=== PATIENT | male | born 1955 | race Caucasian/White ===

== ENCOUNTER 2021-04-30 14:25 | Inpatient (IN) | payer BC, MEDICARE ==
[~2021-04-30] VITALS: Ht 198.1 cm; Wt 103.0 kg
[2021-04-30] MEDS ORDERED: CEFTRIAXONE 1 GM VIAL IM ONE (15:00)
[2021-04-30 15:20] LABS: BASOPHILS # (AUTO) 0.1 (0.0-0.1); BASOPHILS % 0.3 % (0.0-1.0); EOSINOPHILS # (AUTO) 0.1 (0.0-0.4); HEMATOCRIT 35.9 % (38.2-49.6); HEMOGLOBIN 11.2 g/dL (14.0-18.0); LYMPHOCYTES # (AUTO) 1.1 (1.0-3.2); LYMPHOCYTES % 7.8 % (18.0-39.1); MEAN CORPUSCULAR HEMOGLOBIN 27.5 pg (28-32); MEAN CORPUSCULAR HGB CONC 31.2 g/dL (31-35); MONOCYTES # (AUTO) 1.7 (0.2-0.8); MONOCYTES % 12.2 % (4.4-11.3); NEUTROPHILS # (AUTO) 11.2 (2.1-6.9); NEUTROPHILS % 78.3 % (38.7-80.0); PLATELET COUNT 451 x10e3/uL (140-360); RED BLOOD COUNT 4.08 x10e6/uL (4.3-5.7); RED CELL DISTRIBUTION WIDTH 15.6 % (11.7-14.4)
[2021-04-30 15:40] LABS: ALBUMIN 2.6 g/dL (3.5-5.0); ALBUMIN/GLOBULIN RATIO 0.5 (0.8-2.0); ANION GAP 14.1 mmol/L (8-16); CALCIUM 9.3 mg/dL (8.4-10.2); CREATININE, SERUM 0.85 mg/dL (0.72-1.25); POTASSIUM 4.1 mmol/L (3.5-5.1)
[2021-04-30] MEDS ORDERED: ONDANSETRON HCL INJ 2MG/ML 2ML 2 MG/ML VIAL IV PRN (16:45)
[2021-04-30] MEDS ORDERED: ASPIRIN 81 MG CHEW TAB PO ONE (16:45)
[2021-04-30] MEDS ORDERED: SODIUM CHLORIDE 0.9% 50ML 50 ML ONE (18:19)
[2021-04-30] MEDS ORDERED: IOPAMIDOL 370 MG/ML 200 ML INFUS..BTL INJ ONE (18:19)
[2021-04-30 20:00] VITALS: BP 125/91
[2021-04-30 21:00] VITALS: BP 125/91
[2021-04-30 21:02] VITALS: BP 142/85
[2021-04-30] MEDS ORDERED: CETIRIZINE HCL10 MG PO (21:32)
[2021-04-30] MEDS ORDERED: SYMBICORT 16010.2 GM INH (21:32)
[2021-04-30] MEDS ORDERED: ESIDRIX25 MG PO (21:32)
[2021-04-30] MEDS ORDERED: PAXIL10 MG PO (21:32)
[2021-04-30] MEDS ORDERED: VITAMIN C1000 MG PO (21:32)
[2021-04-30] MEDS ORDERED: PREGABALIN75 MG PO (21:32)
[2021-04-30] MEDS ORDERED: RAMIPRIL5 MG PO (21:32)
[2021-04-30] MEDS ORDERED: PEPCID20 MG PO (21:32)
[2021-04-30] MEDS ORDERED: DEXTROAMP-AMPHE30 M1 PO (21:32)
[2021-04-30] MEDS ORDERED: VITAMIN B-121000 MC1 PO (21:32)
[2021-04-30] MEDS ORDERED: BUPROPION HCL100 MG PO (21:32)
[2021-04-30] MEDS ORDERED: LEVOTHYROXINE175 MCG PO (21:32)
[2021-04-30] MEDS ORDERED: ULTRAM 50MG50 MG PO (21:32)
[2021-04-30] MEDS ORDERED: ALEVE220 M1 PO (21:32)
[2021-04-30] MEDS ORDERED: VITAMIN D3-ALO1 EACH PO (21:38)
[2021-04-30] MEDS: TRAMADOL HCL 50 MG TAB PO SCH (22:30)
[2021-05-01] VITALS (8 sets, daily range): BP systolic 92–150; BP diastolic 64–89
[2021-05-01] MEDS: LEVOTHYROXINE SODIUM 100 MCG TAB PO SCH (06:17)
[2021-05-01] MEDS: LEVOTHYROXINE SODIUM 75 MCG TAB PO SCH (06:17)
[2021-05-01 06:20] LABS: BASOPHILS # (AUTO) 0.1 (0.0-0.1); BASOPHILS % 0.4 % (0.0-1.0); EOSINOPHILS # (AUTO) 0.2 (0.0-0.4); EOSINOPHILS % 1.4 % (0.0-6.0); HEMATOCRIT 37.7 % (38.2-49.6); HEMOGLOBIN 11.9 g/dL (14.0-18.0); LYMPHOCYTES # (AUTO) 1.6 (1.0-3.2); LYMPHOCYTES % 11.2 % (18.0-39.1); MEAN CORPUSCULAR HEMOGLOBIN 27.2 pg (28-32); MEAN CORPUSCULAR HGB CONC 31.6 g/dL (31-35); MEAN CORPUSCULAR VOLUME 86.3 fL (81-99); MONOCYTES # (AUTO) 1.7 (0.2-0.8); MONOCYTES % 12.4 % (4.4-11.3); NEUTROPHILS # (AUTO) 10.4 (2.1-6.9); PLATELET COUNT 480 x10e3/uL (140-360); RED BLOOD COUNT 4.37 x10e6/uL (4.3-5.7); RED CELL DISTRIBUTION WIDTH 15.6 % (11.7-14.4)
[2021-05-01 06:46] LABS: ANION GAP 15.4 mmol/L (8-16); CALCIUM 9.8 mg/dL (8.4-10.2); CREATININE, SERUM 0.88 mg/dL (0.72-1.25); POTASSIUM 4.4 mmol/L (3.5-5.1)
[2021-05-01] MEDS: TRAMADOL HCL 50 MG TAB PO SCH ×2 (09:00→17:00)
[2021-05-01 10:49] LABS: INR 1.16; PROTHROMBIN TIME 15.8 seconds (11.9-14.5)
[2021-05-01 11:08] LABS: CREATINE KINASE MB 4.1 ng/mL (0-5.0)
[2021-05-01 12:50] LABS: THYROID STIMULATING HORMONE 5.601 uIU/mL (0.350-4.940)
[2021-05-01] MEDS: ALBUTEROL SULF 0.083% NEB SOLN 3 ML NEB NEB SCH ×2 (15:00→19:30)
[2021-05-01] MEDS: IRON SUCROSE 100 MG in SODIUM CHLORIDE 0.9% 100 ML 100 ML IV SCH (16:30)
[2021-05-01] MEDS: PIPERACILLIN/TAZOBACTAM 3.375 GM in SODIUM CHLORIDE 0.9% 50ML 50 ML IV SCH (18:20)
[2021-05-01] MEDS ORDERED: SODIUM CHLORIDE 0.9% 250ML 250 ML ONE (18:24)
[2021-05-01] MEDS: KETOROLAC TROMETHAMINE 30 MG/ML VIAL IV PRN (18:25)
[2021-05-01 19:33] LABS: CREATINE KINASE MB 4.1 ng/mL (0-5.0)
[2021-05-02] VITALS (7 sets, daily range): BP systolic 105–146; BP diastolic 73–98
[2021-05-02] MEDS: PIPERACILLIN/TAZOBACTAM 3.375 GM in SODIUM CHLORIDE 0.9% 50ML 50 ML IV SCH ×5 (00:45→23:32)
[2021-05-02] MEDS: KETOROLAC TROMETHAMINE 30 MG/ML VIAL IV PRN (02:15)
[2021-05-02 05:30] LABS: BASOPHILS # (AUTO) 0.1 (0.0-0.1); BASOPHILS % 0.6 % (0.0-1.0); EOSINOPHILS # (AUTO) 0.6 (0.0-0.4); EOSINOPHILS % 5.2 % (0.0-6.0); HEMATOCRIT 31.3 % (38.2-49.6); HEMOGLOBIN 9.7 g/dL (14.0-18.0); LYMPHOCYTES # (AUTO) 1.5 (1.0-3.2); MEAN CORPUSCULAR HEMOGLOBIN 27.1 pg (28-32); MEAN CORPUSCULAR VOLUME 87.4 fL (81-99); MONOCYTES # (AUTO) 1.3 (0.2-0.8); MONOCYTES % 11.5 % (4.4-11.3); NEUTROPHILS # (AUTO) 7.7 (2.1-6.9); NEUTROPHILS % 69.1 % (38.7-80.0); PLATELET COUNT 446 x10e3/uL (140-360); RED BLOOD COUNT 3.58 x10e6/uL (4.3-5.7); RED CELL DISTRIBUTION WIDTH 15.4 % (11.7-14.4)
[2021-05-02 05:55] LABS: ANION GAP 11.9 mmol/L (8-16); CALCIUM 8.6 mg/dL (8.4-10.2); CREATININE, SERUM 0.93 mg/dL (0.72-1.25); POTASSIUM 3.9 mmol/L (3.5-5.1)
[2021-05-02] MEDS: LEVOTHYROXINE SODIUM 100 MCG TAB PO SCH (06:51)
[2021-05-02] MEDS: LEVOTHYROXINE SODIUM 75 MCG TAB PO SCH (06:51)
[2021-05-02] MEDS: ALBUTEROL SULF 0.083% NEB SOLN 3 ML NEB NEB SCH ×3 (07:16→23:20)
[2021-05-02] MEDS: TRAMADOL HCL 50 MG TAB PO SCH ×3 (09:29→22:36)
[2021-05-02] MEDS ORDERED: MIDAZOLAM HCL 2 MG/2 ML VIAL ONE (12:19)
[2021-05-02] MEDS ORDERED: EPHEDRINE SULFATE INJ 50 MG/ML VIAL ONE (12:50)
[2021-05-02] MEDS ORDERED: PROPOFOL IV EMULSION 10 MG/ML 20 ML VIAL ONE (12:50)
[2021-05-02] MEDS ORDERED: DEXAMETHASONE SOD PHOS INJ 4 MG/ML SDV ONE (12:50)
[2021-05-02] MEDS ORDERED: ONDANSETRON HCL INJ 2MG/ML 2ML 2 MG/ML VIAL ONE (12:50)
[2021-05-02] MEDS ORDERED: SEVOFLURANE INHAL SOLN 250 ML PEN BTL ONE (12:50)
[2021-05-02] MEDS ORDERED: POVIDONE IODINE 0.05% 0.05 % ML PO ONE (12:50)
[2021-05-02] MEDS ORDERED: PHENYLEPHRINE HCL 1% 10 MG/ML VIAL ONE (12:50)
[2021-05-02] MEDS ORDERED: LIDOCAINE HCL 2% LOCAL INJ 5 ML SDV VIAL INJ ONE (12:50)
[2021-05-02] MEDS ORDERED: LIDOCAINE HCL 2% JELLY 5 ML TUBE ONE (13:38)
[2021-05-02] MEDS ORDERED: LIDOCAINE HCL 4% 50 ML BTL ONE (13:38)
[2021-05-02] MEDS ORDERED: EPINEPHRINE HCL 1:1000 1ML 1 MG/ML AMP ONE (13:38)
[2021-05-02] MEDS ORDERED: ALBUTEROL SULF 0.083% NEB SOLN 3 ML NEB ONE (14:54)
[2021-05-02] MEDS: IRON SUCROSE 100 MG in SODIUM CHLORIDE 0.9% 100 ML 100 ML IV SCH (16:00)
[2021-05-02 17:44] LABS: GLUCOSE,BODY FLUID < 5 mg/dL
[2021-05-02 21:12] LABS: BODY FLUID APPEARANCE TURBID; BODY FLUID COLOR COLORLESS
[2021-05-02 21:13] LABS: RBC,BODY FLUID < 2000 cells/uL; WBC,BODY FLUID 315 cells/uL
[2021-05-02 21:31] LABS: LYMPHOCYTES,BODY FLUID 36 %; MONO/MACROPHG,BODY FLUID 16 %; NEUTROPHILS,BODY FLUID 18 %; OTHER CELLS,BODY FLUID 30 %
[2021-05-03] VITALS (7 sets, daily range): BP systolic 108–177; BP diastolic 74–110
[2021-05-03] MEDS: PIPERACILLIN/TAZOBACTAM 3.375 GM in SODIUM CHLORIDE 0.9% 50ML 50 ML IV SCH ×4 (05:45→23:58)
[2021-05-03] MEDS: LEVOTHYROXINE SODIUM 100 MCG TAB PO SCH (05:45)
[2021-05-03] MEDS: LEVOTHYROXINE SODIUM 75 MCG TAB PO SCH (05:46)
[2021-05-03] MEDS: ALBUTEROL SULF 0.083% NEB SOLN 3 ML NEB NEB SCH ×2 (06:30→14:25)
[2021-05-03] MEDS: TRAMADOL HCL 50 MG TAB PO SCH ×2 (09:00→21:00)
[2021-05-03] MEDS: IRON SUCROSE 100 MG in SODIUM CHLORIDE 0.9% 100 ML 100 ML IV SCH (15:07)
[2021-05-04] VITALS (8 sets, daily range): BP systolic 127–165; BP diastolic 85–96
[2021-05-04] MEDS: PIPERACILLIN/TAZOBACTAM 3.375 GM in SODIUM CHLORIDE 0.9% 50ML 50 ML IV SCH ×3 (05:44→17:37)
[2021-05-04] MEDS: LEVOTHYROXINE SODIUM 75 MCG TAB PO SCH (05:45)
[2021-05-04] MEDS: LEVOTHYROXINE SODIUM 100 MCG TAB PO SCH (05:45)
[2021-05-04] MEDS: ALBUTEROL SULF 0.083% NEB SOLN 3 ML NEB NEB SCH ×2 (06:45→19:16)
[2021-05-04] MEDS: TRAMADOL HCL 50 MG TAB PO SCH ×2 (12:55→21:08)
[2021-05-05] VITALS (8 sets, daily range): BP systolic 96–125; BP diastolic 73–87
[2021-05-05] MEDS: PIPERACILLIN/TAZOBACTAM 3.375 GM in SODIUM CHLORIDE 0.9% 50ML 50 ML IV SCH ×2 (00:30→06:11)
[2021-05-05] MEDS: LEVOTHYROXINE SODIUM 75 MCG TAB PO SCH (06:12)
[2021-05-05] MEDS: LEVOTHYROXINE SODIUM 100 MCG TAB PO SCH (06:12)
[2021-05-05] MEDS: ALBUTEROL SULF 0.083% NEB SOLN 3 ML NEB NEB SCH ×3 (06:54→18:40)
[2021-05-05 07:09] LABS: BASOPHILS # (AUTO) 0.1 (0.0-0.1); BASOPHILS % 0.6 % (0.0-1.0); EOSINOPHILS # (AUTO) 0.3 (0.0-0.4); EOSINOPHILS % 3.1 % (0.0-6.0); HEMOGLOBIN 11.1 g/dL (14.0-18.0); LYMPHOCYTES # (AUTO) 1.6 (1.0-3.2); LYMPHOCYTES % 14.6 % (18.0-39.1); MEAN CORPUSCULAR HEMOGLOBIN 26.9 pg (28-32); MEAN CORPUSCULAR HGB CONC 31.7 g/dL (31-35); MEAN CORPUSCULAR VOLUME 84.7 fL (81-99); MONOCYTES # (AUTO) 1.1 (0.2-0.8); MONOCYTES % 9.9 % (4.4-11.3); NEUTROPHILS # (AUTO) 7.7 (2.1-6.9); NEUTROPHILS % 71.2 % (38.7-80.0); PLATELET COUNT 565 x10e3/uL (140-360); RED BLOOD COUNT 4.13 x10e6/uL (4.3-5.7); RED CELL DISTRIBUTION WIDTH 15.7 % (11.7-14.4)
[2021-05-05 07:32] LABS: ALBUMIN 2.3 g/dL (3.5-5.0); ALBUMIN/GLOBULIN RATIO 0.5 (0.8-2.0); ANION GAP 14.5 mmol/L (8-16); CALCIUM 8.7 mg/dL (8.4-10.2); CREATININE, SERUM 0.83 mg/dL (0.72-1.25); POTASSIUM 4.5 mmol/L (3.5-5.1)
[2021-05-05 11:18] LABS: ABG HCO3 33 mmol/L (22-26); ABG PCO2 45 mmHg (35-45); ABG PH 7.48 (7.35-7.45); ABG PO2 70 mmHg (80-105); ABG TCO2 35
[2021-05-05] MEDS: TRAMADOL HCL 50 MG TAB PO SCH ×2 (14:23→20:41)
[2021-05-05] MEDS: Ampicillin INJ 2 GM in SODIUM CHLORIDE 0.9% 100 ML IV SCH ×2 (14:31→18:43)
[2021-05-06] VITALS: BP 119/85
[2021-05-06] MEDS: Ampicillin INJ 2 GM in SODIUM CHLORIDE 0.9% 100 ML IV SCH ×4 (00:43→17:18)
[2021-05-06 04:00] VITALS: BP 146/95
[2021-05-06] MEDS: LEVOTHYROXINE SODIUM 75 MCG TAB PO SCH (05:31)
[2021-05-06] MEDS: LEVOTHYROXINE SODIUM 100 MCG TAB PO SCH (05:31)
[2021-05-06] MEDS: ALBUTEROL SULF 0.083% NEB SOLN 3 ML NEB NEB SCH ×3 (06:55→19:10)
[2021-05-06 08:26] VITALS: BP 126/93
[2021-05-06 08:52] VITALS: BP 126/93
[2021-05-06] MEDS: TRAMADOL HCL 50 MG TAB PO SCH ×2 (08:54→21:00)
[2021-05-06 12:44] VITALS: BP 78/57
[2021-05-06 20:07] VITALS: BP 143/90
[2021-05-07] VITALS (11 sets, daily range): BP systolic 113–163; BP diastolic 71–94
[2021-05-07] MEDS ORDERED: SODIUM CHLORIDE 0.9% 100 ML ONE (01:12)
[2021-05-07] MEDS: Ampicillin INJ 2 GM in SODIUM CHLORIDE 0.9% 100 ML IV SCH ×4 (05:21→11:13)
[2021-05-07] MEDS: LEVOTHYROXINE SODIUM 75 MCG TAB PO SCH (05:21)
[2021-05-07] MEDS: LEVOTHYROXINE SODIUM 100 MCG TAB PO SCH (05:22)
[2021-05-07] MEDS: ALBUTEROL SULF 0.083% NEB SOLN 3 ML NEB NEB SCH ×3 (07:25→23:15)
[2021-05-07 07:37] LABS: BASOPHILS # (AUTO) 0.1 (0.0-0.1); BASOPHILS % 0.8 % (0.0-1.0); EOSINOPHILS # (AUTO) 0.3 (0.0-0.4); EOSINOPHILS % 3.1 % (0.0-6.0); HEMATOCRIT 35.6 % (38.2-49.6); HEMOGLOBIN 10.7 g/dL (14.0-18.0); LYMPHOCYTES # (AUTO) 1.1 (1.0-3.2); MEAN CORPUSCULAR HEMOGLOBIN 26.7 pg (28-32); MEAN CORPUSCULAR HGB CONC 30.1 g/dL (31-35); MEAN CORPUSCULAR VOLUME 88.8 fL (81-99); MONOCYTES # (AUTO) 0.7 (0.2-0.8); MONOCYTES % 7.7 % (4.4-11.3); NEUTROPHILS % 75.9 % (38.7-80.0); PLATELET COUNT 609 x10e3/uL (140-360); RED BLOOD COUNT 4.01 x10e6/uL (4.3-5.7); RED CELL DISTRIBUTION WIDTH 15.9 % (11.7-14.4)
[2021-05-07 07:52] LABS: ANION GAP 12.9 mmol/L (8-16); CALCIUM 9.3 mg/dL (8.4-10.2); CREATININE, SERUM 0.89 mg/dL (0.72-1.25); POTASSIUM 3.9 mmol/L (3.5-5.1)
[2021-05-07] MEDS ORDERED: ACETAZOLAMIDE SODIUM 500 MG/VIAL IV ONE (08:45)
[2021-05-07 09:05] LABS: % IRON SATURATION 9 % (15-50); IRON 18 ug/dL (65-175); TOTAL IRON BINDING CAPACITY 190 ug/dL (261-478); TRANSFERRIN 136 mg/dL (174-364)
[2021-05-07] MEDS ORDERED: FENTANYL CITRATE/PF 100MCG/2 ML INJ ONE (12:33)
[2021-05-07] MEDS ORDERED: MIDAZOLAM HCL 2 MG/2 ML VIAL ONE (12:33)
[2021-05-07] MEDS ORDERED: LIDOCAINE 1% W/EPINEPHRINE 20 ML VIAL ONE (16:58)
[2021-05-07] MEDS ORDERED: BUPIVACAINE 0.25% 30ML SDV ONE (16:58)
[2021-05-07] MEDS ORDERED: METOPROLOL TARTRATE INJ 1 MG/ML VIAL IV PRN (18:45)
[2021-05-07] MEDS: METOPROLOL TARTRATE INJ 1 MG/ML VIAL IV PRN ×3 (18:58→20:25)
[2021-05-07] MEDS: LABETALOL HCL 5 MG/ML 20ML VIAL IV PRN ×3 (18:58→20:25)
[2021-05-07] MEDS ORDERED: LABETALOL HCL 20 ML ONE (19:02)
[2021-05-07] MEDS ORDERED: LABETALOL HCL 0 ML ONE (19:02)
[2021-05-07] MEDS: HYDROMORPHONE 1MG/1ML INJ IV PRN ×2 (19:10→22:14)
[2021-05-07] MEDS: SODIUM CHLORIDE 0.9% 1000ML 1,000 ML IV SCH (19:58)
[2021-05-08] VITALS (21 sets, daily range): BP systolic 98–182; BP diastolic 57–88
[2021-05-08] MEDS: LABETALOL HCL 5 MG/ML 20ML VIAL IV PRN (00:46)
[2021-05-08] MEDS: HYDROMORPHONE 1MG/1ML INJ IV PRN ×2 (02:55→08:37)
[2021-05-08 05:01] LABS: BASOPHILS % 0.2 % (0.0-1.0); HEMATOCRIT 27.9 % (38.2-49.6); HEMOGLOBIN 8.7 g/dL (14.0-18.0); LYMPHOCYTES # (AUTO) 0.9 (1.0-3.2); LYMPHOCYTES % 8.2 % (18.0-39.1); MEAN CORPUSCULAR HEMOGLOBIN 27.1 pg (28-32); MEAN CORPUSCULAR HGB CONC 31.2 g/dL (31-35); MEAN CORPUSCULAR VOLUME 86.9 fL (81-99); MONOCYTES # (AUTO) 0.9 (0.2-0.8); MONOCYTES % 8.2 % (4.4-11.3); NEUTROPHILS # (AUTO) 8.9 (2.1-6.9); NEUTROPHILS % 82.8 % (38.7-80.0); PLATELET COUNT 598 x10e3/uL (140-360); RED BLOOD COUNT 3.21 x10e6/uL (4.3-5.7); RED CELL DISTRIBUTION WIDTH 15.8 % (11.7-14.4)
[2021-05-08] MEDS: LEVOTHYROXINE SODIUM 100 MCG TAB PO SCH (05:32)
[2021-05-08] MEDS: LEVOTHYROXINE SODIUM 75 MCG TAB PO SCH (05:32)
[2021-05-08] MEDS: SODIUM CHLORIDE 0.9% 1000ML 1,000 ML IV SCH ×2 (05:32→13:21)
[2021-05-08 05:41] LABS: ALBUMIN 2.1 g/dL (3.5-5.0); ALBUMIN/GLOBULIN RATIO 0.5 (0.8-2.0); ANION GAP 11.7 mmol/L (8-16); CALCIUM 7.8 mg/dL (8.4-10.2); CREATININE, SERUM 0.74 mg/dL (0.72-1.25); POTASSIUM 3.7 mmol/L (3.5-5.1)
[2021-05-08] MEDS: ALBUTEROL SULF 0.083% NEB SOLN 3 ML NEB NEB SCH ×4 (07:00→20:05)
[2021-05-08] MEDS: IRON SUCROSE 100 MG in SODIUM CHLORIDE 0.9% 100 ML 100 ML IV SCH (10:42)
[2021-05-08] MEDS: HYDROCODONE/APAP 7.5MG-325MG 1 EA TAB PO PRN ×2 (12:12→16:47)
[2021-05-08] MEDS: CEFTRIAXONE 2 GM in SODIUM CHLORIDE 0.9% 100 ML IV SCH (12:30)
[2021-05-08] MEDS ORDERED: PROPOFOL IV EMULSION 10 MG/ML 20 ML VIAL ONE (19:23)
[2021-05-08] MEDS ORDERED: SEVOFLURANE INHAL SOLN 250 ML PEN BTL ONE (19:23)
[2021-05-08] MEDS ORDERED: ROCURONIUM BROMIDE 10 MG/ML 5ML VIAL IV ONE (19:23)
[2021-05-08] MEDS ORDERED: PHENYLEPHRINE HCL 1% 10 MG/ML VIAL ONE (19:23)
[2021-05-08] MEDS ORDERED: CEFTRIAXONE 1 GM VIAL ONE (19:23)
[2021-05-08] MEDS ORDERED: LIDOCAINE HCL 2% LOCAL INJ 5 ML SDV VIAL INJ ONE (19:23)
[2021-05-08] MEDS ORDERED: ONDANSETRON HCL INJ 2MG/ML 2ML 2 MG/ML VIAL ONE (19:23)
[2021-05-08] MEDS ORDERED: POVIDONE IODINE 0.05% 0.05 % ML PO ONE (19:23)
[2021-05-08] MEDS ORDERED: DEXAMETHASONE SOD PHOS INJ 4 MG/ML SDV ONE (19:23)
[2021-05-08] MEDS ORDERED: EPHEDRINE SULFATE INJ 50 MG/ML VIAL ONE (19:23)
[2021-05-08] MEDS ORDERED: ESMOLOL HCL 100MG/10ML 10 MG/ML VIAL ONE (19:23)
[2021-05-08] MEDS: HYDROCODONE/APAP 10MG-325MG TAB PO PRN (20:01)
[2021-05-09] VITALS (8 sets, daily range): BP systolic 107–137; BP diastolic 74–90
[2021-05-09] MEDS: KETOROLAC TROMETHAMINE 30 MG/ML VIAL IV PRN ×3 (00:42→16:22)
[2021-05-09] MEDS: LEVOTHYROXINE SODIUM 100 MCG TAB PO SCH (05:39)
[2021-05-09] MEDS: LEVOTHYROXINE SODIUM 75 MCG TAB PO SCH (05:39)
[2021-05-09 05:46] LABS: BASOPHILS % 0.4 % (0.0-1.0); EOSINOPHILS # (AUTO) 0.2 (0.0-0.4); EOSINOPHILS % 2.3 % (0.0-6.0); HEMATOCRIT 26.3 % (38.2-49.6); LYMPHOCYTES # (AUTO) 1.7 (1.0-3.2); LYMPHOCYTES % 19.1 % (18.0-39.1); MEAN CORPUSCULAR HEMOGLOBIN 26.6 pg (28-32); MEAN CORPUSCULAR HGB CONC 30.4 g/dL (31-35); MEAN CORPUSCULAR VOLUME 87.4 fL (81-99); MONOCYTES % 11.3 % (4.4-11.3); NEUTROPHILS % 66.3 % (38.7-80.0); PLATELET COUNT 566 x10e3/uL (140-360); RED BLOOD COUNT 3.01 x10e6/uL (4.3-5.7); RED CELL DISTRIBUTION WIDTH 15.9 % (11.7-14.4)
[2021-05-09 06:06] LABS: ANION GAP 11.5 mmol/L (8-16); CALCIUM 7.9 mg/dL (8.4-10.2); CREATININE, SERUM 0.79 mg/dL (0.72-1.25); POTASSIUM 3.5 mmol/L (3.5-5.1)
[2021-05-09] MEDS: HYDROCODONE/APAP 10MG-325MG TAB PO PRN ×3 (06:12→20:11)
[2021-05-09] MEDS: ALBUTEROL SULF 0.083% NEB SOLN 3 ML NEB NEB SCH ×5 (07:05→23:55)
[2021-05-09] MEDS: IRON SUCROSE 100 MG in SODIUM CHLORIDE 0.9% 100 ML 100 ML IV SCH (09:43)
[2021-05-09] MEDS ORDERED: ONDANSETRON HCL 4 MG ORAL DISINTEGRATING TAB PO PRN (11:45)
[2021-05-09] MEDS: ACETYLCYSTEINE 200 MG/ML 4ML VIAL INH SCH ×2 (12:30→20:05)
[2021-05-09] MEDS: CEFTRIAXONE 2 GM in SODIUM CHLORIDE 0.9% 100 ML IV SCH (13:04)
[2021-05-09] MEDS: PANTOPRAZOLE SOD 40 MG TABEC PO SCH (18:36)
[2021-05-09] MEDS: SODIUM CHLORIDE 0.9% 1000ML 1,000 ML IV SCH (20:11)
[2021-05-10] VITALS (7 sets, daily range): BP systolic 118–150; BP diastolic 81–96
[2021-05-10] MEDS: LEVOTHYROXINE SODIUM 75 MCG TAB PO SCH (01:12)
[2021-05-10] MEDS: LEVOTHYROXINE SODIUM 100 MCG TAB PO SCH (01:12)
[2021-05-10] MEDS: ALBUTEROL SULF 0.083% NEB SOLN 3 ML NEB NEB SCH ×6 (01:30→21:10)
[2021-05-10] MEDS: KETOROLAC TROMETHAMINE 30 MG/ML VIAL IV PRN ×2 (02:43→11:54)
[2021-05-10] MEDS: ACETYLCYSTEINE 200 MG/ML 4ML VIAL INH SCH ×4 (04:05→21:10)
[2021-05-10 08:43] LABS: BASOPHILS % 0.4 % (0.0-1.0); EOSINOPHILS # (AUTO) 0.3 (0.0-0.4); EOSINOPHILS % 4.1 % (0.0-6.0); HEMATOCRIT 26.6 % (38.2-49.6); HEMOGLOBIN 8.2 g/dL (14.0-18.0); LYMPHOCYTES # (AUTO) 1.7 (1.0-3.2); LYMPHOCYTES % 21.5 % (18.0-39.1); MEAN CORPUSCULAR HEMOGLOBIN 27.1 pg (28-32); MEAN CORPUSCULAR HGB CONC 30.8 g/dL (31-35); MEAN CORPUSCULAR VOLUME 87.8 fL (81-99); MONOCYTES # (AUTO) 0.8 (0.2-0.8); MONOCYTES % 9.8 % (4.4-11.3); NEUTROPHILS # (AUTO) 5.1 (2.1-6.9); NEUTROPHILS % 63.7 % (38.7-80.0); PLATELET COUNT 470 x10e3/uL (140-360); RED BLOOD COUNT 3.03 x10e6/uL (4.3-5.7); RED CELL DISTRIBUTION WIDTH 16.1 % (11.7-14.4)
[2021-05-10] MEDS: IRON SUCROSE 100 MG in SODIUM CHLORIDE 0.9% 100 ML 100 ML IV SCH (09:00)
[2021-05-10] MEDS ORDERED: ACETYLCYSTEINE 200 MG/ML 4ML VIAL ONE (09:04)
[2021-05-10 09:11] LABS: ANION GAP 12.5 mmol/L (8-16); CALCIUM 8.5 mg/dL (8.4-10.2); CREATININE, SERUM 0.74 mg/dL (0.72-1.25); POTASSIUM 3.5 mmol/L (3.5-5.1)
[2021-05-10] MEDS: CEFTRIAXONE 2 GM in SODIUM CHLORIDE 0.9% 100 ML IV SCH (11:28)
[2021-05-10] MEDS ORDERED: ONDANSETRON HCL INJ 2MG/ML 2ML 2 MG/ML VIAL ONE (13:12)
[2021-05-10] MEDS ORDERED: POVIDONE IODINE 0.05% 0.05 % ML PO ONE (13:12)
[2021-05-10] MEDS ORDERED: SEVOFLURANE INHAL SOLN 250 ML PEN BTL ONE (13:12)
[2021-05-10] MEDS ORDERED: PROPOFOL IV EMULSION 10 MG/ML 20 ML VIAL ONE (13:12)
[2021-05-10] MEDS ORDERED: LIDOCAINE HCL 2% LOCAL INJ 5 ML SDV VIAL INJ ONE (13:12)
[2021-05-10] MEDS ORDERED: MIDAZOLAM HCL 2 MG/2 ML VIAL ONE (13:24)
[2021-05-10] MEDS: PANTOPRAZOLE SOD 40 MG TABEC PO SCH (15:32)
[2021-05-10] MEDS: HYDROMORPHONE 1MG/1ML INJ IV PRN (16:03)
[2021-05-10] MEDS: SODIUM CHLORIDE 0.9% 1000ML 1,000 ML IV SCH (20:29)
[2021-05-10] MEDS: LABETALOL HCL 5 MG/ML 20ML VIAL IV PRN (21:31)
[2021-05-10] MEDS: HYDROCODONE/APAP 10MG-325MG TAB PO PRN ×2 (21:31→22:33)
[2021-05-11] VITALS (7 sets, daily range): BP systolic 120–153; BP diastolic 72–94
[2021-05-11] MEDS: ALBUTEROL SULF 0.083% NEB SOLN 3 ML NEB NEB SCH ×6 (04:00→23:45)
[2021-05-11] MEDS: HYDROCODONE/APAP 10MG-325MG TAB PO PRN ×3 (04:26→21:35)
[2021-05-11] MEDS: LEVOTHYROXINE SODIUM 100 MCG TAB PO SCH (05:10)
[2021-05-11] MEDS: LEVOTHYROXINE SODIUM 75 MCG TAB PO SCH (05:10)
[2021-05-11] MEDS: ACETYLCYSTEINE 200 MG/ML 4ML VIAL INH SCH ×2 (07:20→19:30)
[2021-05-11] MEDS ORDERED: MAGNESIUM HYDROXIDE 30 ML UDC PO PRN (10:15)
[2021-05-11] MEDS ORDERED: MAGNESIUM HYDROXIDE 30 ML UDC PO ONE (10:30)
[2021-05-11] MEDS: CEFTRIAXONE 2 GM in SODIUM CHLORIDE 0.9% 100 ML IV SCH (12:00)
[2021-05-11] MEDS: PANTOPRAZOLE SOD 40 MG TABEC PO SCH (16:30)
[2021-05-12] MEDS: ALBUTEROL SULF 0.083% NEB SOLN 3 ML NEB NEB SCH ×6 (03:00→23:00)
[2021-05-12 04:00] VITALS: BP 169/103
[2021-05-12] MEDS: HYDROCODONE/APAP 10MG-325MG TAB PO PRN ×3 (04:07→18:11)
[2021-05-12] MEDS: LEVOTHYROXINE SODIUM 100 MCG TAB PO SCH (05:35)
[2021-05-12] MEDS: LEVOTHYROXINE SODIUM 75 MCG TAB PO SCH (05:36)
[2021-05-12] MEDS: ACETYLCYSTEINE 200 MG/ML 4ML VIAL INH SCH ×2 (07:20→19:36)
[2021-05-12 07:44] LABS: BASOPHILS % 0.4 % (0.0-1.0); EOSINOPHILS # (AUTO) 0.4 (0.0-0.4); EOSINOPHILS % 5.1 % (0.0-6.0); HEMATOCRIT 25.7 % (38.2-49.6); HEMOGLOBIN 7.6 g/dL (14.0-18.0); LYMPHOCYTES # (AUTO) 1.4 (1.0-3.2); MEAN CORPUSCULAR HEMOGLOBIN 26.8 pg (28-32); MEAN CORPUSCULAR HGB CONC 29.6 g/dL (31-35); MEAN CORPUSCULAR VOLUME 90.5 fL (81-99); MONOCYTES # (AUTO) 0.7 (0.2-0.8); MONOCYTES % 9.1 % (4.4-11.3); NEUTROPHILS % 66.1 % (38.7-80.0); PLATELET COUNT 510 x10e3/uL (140-360); RED BLOOD COUNT 2.84 x10e6/uL (4.3-5.7); RED CELL DISTRIBUTION WIDTH 16.4 % (11.7-14.4)
[2021-05-12 08:11] LABS: ALBUMIN 2.1 g/dL (3.5-5.0); ALBUMIN/GLOBULIN RATIO 0.5 (0.8-2.0); ANION GAP 11.1 mmol/L (8-16); CALCIUM 8.1 mg/dL (8.4-10.2); CREATININE, SERUM 0.69 mg/dL (0.72-1.25); MAGNESIUM 2.1 MG/DL (1.3-2.1); POTASSIUM 4.1 mmol/L (3.5-5.1)
[2021-05-12 09:05] VITALS: BP 118/78
[2021-05-12 09:07] VITALS: BP 118/78
[2021-05-12] MEDS: CEFTRIAXONE 2 GM in SODIUM CHLORIDE 0.9% 100 ML IV SCH (12:00)
[2021-05-12] MEDS: PANTOPRAZOLE SOD 40 MG TABEC PO SCH (16:30)
[2021-05-12] MEDS ORDERED: FUROSEMIDE INJ 10 MG/ML 2 ML VIAL IV ONE (20:00)
[2021-05-12 20:20] VITALS: BP 113/72
[2021-05-12 20:35] VITALS: BP 113/72
[2021-05-12] MEDS ORDERED: CEFTRIAXONE 2 GM in SODIUM CHLORIDE 0.9% 100 ML IV SCH (21:00)
[2021-05-13] MEDS: HYDROCODONE/APAP 10MG-325MG TAB PO PRN ×4 (00:01→15:25)
[2021-05-13 01:20] VITALS: BP 123/87
[2021-05-13] MEDS: ALBUTEROL SULF 0.083% NEB SOLN 3 ML NEB NEB SCH ×2 (02:48→07:00)
[2021-05-13 05:42] VITALS: BP 144/98
[2021-05-13] MEDS: LEVOTHYROXINE SODIUM 100 MCG TAB PO SCH (05:45)
[2021-05-13] MEDS: LEVOTHYROXINE SODIUM 75 MCG TAB PO SCH (05:45)
[2021-05-13] MEDS ORDERED: FUROSEMIDE INJ 10 MG/ML 2 ML VIAL IV ONE (06:00)
[2021-05-13] MEDS: ACETYLCYSTEINE 200 MG/ML 4ML VIAL INH SCH (07:00)
[2021-05-13 07:24] LABS: BASOPHILS % 0.7 % (0.0-1.0); EOSINOPHILS # (AUTO) 0.4 (0.0-0.4); HEMATOCRIT 28.3 % (38.2-49.6); HEMOGLOBIN 8.6 g/dL (14.0-18.0); LYMPHOCYTES # (AUTO) 1.4 (1.0-3.2); LYMPHOCYTES % 22.6 % (18.0-39.1); MEAN CORPUSCULAR HGB CONC 30.4 g/dL (31-35); MONOCYTES # (AUTO) 0.6 (0.2-0.8); MONOCYTES % 10.5 % (4.4-11.3); NEUTROPHILS # (AUTO) 3.6 (2.1-6.9); NEUTROPHILS % 59.9 % (38.7-80.0); PLATELET COUNT 546 x10e3/uL (140-360); RED BLOOD COUNT 3.18 x10e6/uL (4.3-5.7); RED CELL DISTRIBUTION WIDTH 16.7 % (11.7-14.4)
[2021-05-13 07:44] LABS: % IRON SATURATION 13 % (15-50); IRON 28 ug/dL (65-175); TOTAL IRON BINDING CAPACITY 209 ug/dL (261-478); TRANSFERRIN 149 mg/dL (174-364)
[2021-05-13 07:53] LABS: ALBUMIN 2.5 g/dL (3.5-5.0); ALBUMIN/GLOBULIN RATIO 0.6 (0.8-2.0); ANION GAP 11.5 mmol/L (8-16); CALCIUM 8.4 mg/dL (8.4-10.2); CREATININE, SERUM 0.77 mg/dL (0.72-1.25); MAGNESIUM 2.2 MG/DL (1.3-2.1); POTASSIUM 3.5 mmol/L (3.5-5.1)
[2021-05-13 07:54] VITALS: BP 122/88
[2021-05-13 10:54] VITALS: BP 122/88
[2021-05-13 11:41] VITALS: BP 126/77
[2021-05-13 15:58] VITALS: BP 165/87
[2021-05-13] MEDS: PANTOPRAZOLE SOD 40 MG TABEC PO SCH (16:30)
[2021-05-13] MEDS ORDERED: LEVOFLOXACIN250 MG PO (16:52)
[2021-05-13] MEDS ORDERED: TYLENOL 3 PO (16:53)
[2021-05-13] MEDS ORDERED: ALBUTEROL SULF 0.083% NEB SOLN 3 ML NEB NEB SCH (19:00)
== END 2021-05-13 17:35 | disposition home or self-care (01) | DRG 163 ==
LOC: ER 16:16 → ERHOLD 17:10 → MED/SURG3 18:06 → ICU 05-07 18:30 → MED/SURG 05-08 16:44
PROVIDERS: ADMIT Family Medicine; ATTEND Family Medicine
PROC: 0B9J8ZX Drainage of Left Lower Lung Lobe, Via Natural or Artificial Opening Endoscopic, Diagnostic (ICD-10-PCS; 2021-05-02)
PROC: 0B9H8ZX Drainage of Lung Lingula, Via Natural or Artificial Opening Endoscopic, Diagnostic (ICD-10-PCS; 2021-05-02)
PROC: 0BJ08ZZ Inspection of Tracheobronchial Tree, Via Natural or Artificial Opening Endoscopic (ICD-10-PCS; principal; 2021-05-02 14:00)
PROC: 0W9B30Z Drainage of Left Pleural Cavity with Drainage Device, Percutaneous Approach (ICD-10-PCS; 2021-05-03)
PROC: 0BCP4ZZ Extirpation of Matter from Left Pleura, Percutaneous Endoscopic Approach (ICD-10-PCS; 2021-05-07)
PROC: 3E0F8GC Introduction of Other Therapeutic Substance into Respiratory Tract, Via Natural or Artificial Opening Endoscopic (ICD-10-PCS; 2021-05-10)
PROC: 0BJ08ZZ Inspection of Tracheobronchial Tree, Via Natural or Artificial Opening Endoscopic (ICD-10-PCS; 2021-05-10)
DX: J86.9 Pyothorax without fistula (principal); J18.9 Pneumonia, unspecified organism; J91.8 Pleural effusion in other conditions classified elsewhere; Z85.89 Personal history of malignant neoplasm of other organs and systems; E03.9 Hypothyroidism, unspecified; M79.10 Myalgia, unspecified site; G62.9 Polyneuropathy, unspecified; E78.5 Hyperlipidemia, unspecified; I10 Essential (primary) hypertension; J40 Bronchitis, not specified as acute or chronic; R53.81 Other malaise; D50.9 Iron deficiency anemia, unspecified; E53.8 Deficiency of other specified B group vitamins; K21.00 Gastro-esophageal reflux disease with esophagitis, without bleeding; I27.20 Pulmonary hypertension, unspecified; F32.A Depression, unspecified; R59.0 Localized enlarged lymph nodes; Z20.822 Contact with and (suspected) exposure to COVID-19
CPT/HCPCS: 31622; 31623; 32555; 36415; 36600; 71045; 71046; 71250; 71260; 74470; 76000; 76604; 80048; 80053; 82550; 82553; 82805; 82945; 83540; 83605; 83615; 83735; 84157; 84443; 84466; 84484; 85025; 85379; 85610; 86850; 86900; 87040; 87070; 87102; 87109; 87116; 87205; 87206; 87335; 88112; 88304; 88305; 89051; 93005; 93306; 94640; 94799; 97139; 99284; J0171; J0456; J0696; J1100; J1170; J1756; J1885; J1940; J2001; J2250; J2370; J2405; J2543; J3010; J7030; J7050; Q9967; U0002

== ENCOUNTER → 2021-05-28 | Outpatient (CLI) | payer BC, MEDICARE ==
[~2021-05-28] MED LIST: ALEVE220 M1 PO; BUPROPION HCL100 MG PO; CETIRIZINE HCL10 MG PO; DEXTROAMP-AMPHE30 M1 PO; ESIDRIX25 MG PO; LEVOFLOXACIN250 MG PO; LEVOTHYROXINE175 MCG PO; PAXIL10 MG PO; PEPCID20 MG PO; PREGABALIN75 MG PO; RAMIPRIL5 MG PO; SYMBICORT 16010.2 GM INH; TYLENOL 3 PO; ULTRAM 50MG50 MG PO; VITAMIN B-121000 MC1 PO; VITAMIN C1000 MG PO; VITAMIN D3-ALO1 EACH PO
== END ==
LOC: RAD 11:50
PROVIDERS: ATTEND Surgery
DX: J90 Pleural effusion, not elsewhere classified (principal)
CPT/HCPCS: 71046

== ENCOUNTER 2023-02-18 11:10 | Outpatient (RCR) | payer BC, MEDICARE ==
[~2023-02-18 11:10] MED LIST changes: +AMLODIPINE BES2.5 MG PO; +CYMBALTA20 MG PO; +IPRAT-ALBUT 0.5-3 ML; +VITAMIN D250 MCG; +VYVANSE30 MG
== END 2023-03-11 ==
LOC: ST 11:10
PROVIDERS: ATTEND Family Medicine
DX: R13.13 Dysphagia, pharyngeal phase (principal); Z85.818 Personal history of malignant neoplasm of other sites of lip, oral cavity, and pharynx

== ENCOUNTER → 2023-06-03 | Outpatient (REF) | payer BC, MEDICARE | LOC: DX 11:04 | PROVIDERS: ATTEND Family Medicine | DX: R13.13 Dysphagia, pharyngeal phase (principal) | CPT/HCPCS: 74230 ==

== ENCOUNTER → 2023-09-05 | Day surgery (SDC) | payer BC, MEDICARE ==
[~2023-09-05] MED LIST changes: +ADDERALL 30 MG30 MG; +CEFTRIAXONE 1 GM VIAL ONE; +DEXAMETHASONE SOD PHOS INJ 4 MG/ML SDV ONE; +EPHEDRINE SULFATE INJ 50 MG/ML VIAL ONE; +FENTANYL CITRATE/PF 100MCG/2 ML INJ ONE; +FEROSUL325 MG PO; +FLOMAX0.4 MG PO; +HYDRALAZINE HCL 20 MG/ML VIAL ONE; +IOPAMIDOL 610MG/1ML 300 MG/ML VIAL IV ONE; +LABETALOL HCL 20 ML ONE; +LACTATED RINGER'S 1,000 ML ONE; +LIDOCAINE HCL 2% LOCAL INJ 5 ML SDV VIAL INJ ONE; +ONDANSETRON HCL INJ 2MG/ML 2ML 2 MG/ML VIAL ONE; +PROPOFOL IV EMULSION 10 MG/ML 20 ML VIAL ONE; +SEVOFLURANE INHAL SOLN 250 ML PEN BTL ONE; +VESICARE5 MG PO
[2023-09-05] MEDS: LACTATED RINGER'S 1,000 ML BAG IV ONE (07:35)
[2023-09-05] MEDS: CEFTRIAXONE 1 GM VIAL IV ONE (07:40)
[2023-09-05 07:50] LABS: ALBUMIN 3.5 g/dL (3.5-5.0); ALBUMIN/GLOBULIN RATIO 0.9 (0.8-2.0); ANION GAP 13.1 mmol/L (8-16); BILIRUBIN,TOTAL 0.2 mg/dL (0.2-1.2); CALCIUM 9.2 mg/dL (8.4-10.2); CREATININE, SERUM 0.89 mg/dL (0.72-1.25); POTASSIUM 4.1 mmol/L (3.5-5.1); TOTAL PROTEIN 7.2 g/dL (6.5-8.1)
[2023-09-05 08:01] LABS: BASOPHILS % 0.5 % (0.0-1.0); EOSINOPHILS # (AUTO) 0.9 (0.0-0.4); EOSINOPHILS % 11.4 % (0.0-6.0); HEMATOCRIT 37.2 % (38.2-49.6); HEMOGLOBIN 12.2 g/dL (14.0-18.0); LYMPHOCYTES # (AUTO) 1.3 (1.0-3.2); LYMPHOCYTES % 17.1 % (18.0-39.1); MEAN CORPUSCULAR HEMOGLOBIN 29.3 pg (28-32); MEAN CORPUSCULAR HGB CONC 32.8 g/dL (31-35); MEAN CORPUSCULAR VOLUME 89.4 fL (81-99); MONOCYTES # (AUTO) 0.6 (0.2-0.8); MONOCYTES % 8.2 % (4.4-11.3); NEUTROPHILS # (AUTO) 4.9 (2.1-6.9); NEUTROPHILS % 62.5 % (38.7-80.0); PLATELET COUNT 274 x10e3/uL (140-360); RED BLOOD COUNT 4.16 x10e6/uL (4.3-5.7); RED CELL DISTRIBUTION WIDTH 14.6 % (11.7-14.4); WHITE BLOOD COUNT 7.84 x10e3/uL (4.8-10.8)
[2023-09-05 09:24] VITALS: TEMP 98.5
[2023-09-05] MEDS: LABETALOL HCL 5 MG/ML 20ML VIAL IV ONE ×2 (09:45→09:50)
[2023-09-05] MEDS: HYDRALAZINE HCL 20 MG/ML VIAL IV ONE (10:02)
[2023-09-05 10:30] VITALS: BP 140/78; PULSE 76; RESP 16; O2SAT 95
[2023-09-06 06:13] LABS: CALCIUM 9.1 mg/dL (8.6-10.2)
== END | disposition home or self-care (01) ==
LOC: OR 06:48
PROVIDERS: ATTEND Urology
DX: N20.0 Calculus of kidney (principal); N40.1 Benign prostatic hyperplasia with lower urinary tract symptoms; N20.1 Calculus of ureter; I10 Essential (primary) hypertension; E07.9 Disorder of thyroid, unspecified; G89.29 Other chronic pain; F32.A Depression, unspecified; F90.9 Attention-deficit hyperactivity disorder, unspecified type; Z79.899 Other long term (current) drug therapy; Z85.819 Personal history of malignant neoplasm of unspecified site of lip, oral cavity, and pharynx; Z92.3 Personal history of irradiation; Z84.1 Family history of disorders of kidney and ureter
CPT/HCPCS: 36415; 50590; 71046; 74018; 80053; 83970; 84550; 85025; 93005; J0360; J0696; J1100; J2001; J2405; J2704; J3010; J3490; J7121

== ENCOUNTER 2023-11-21 08:37 | Inpatient (IN) | payer MEDICARE, BC ==
[~2023-11-21] VITALS: Ht 198.1 cm; Wt 93.9 kg
[2023-11-21] VITALS (8 sets, daily range): BP systolic 131–175; BP diastolic 89–96; PULSE 70–86; RESP 16–17; TEMP 97.8–98.3; O2SAT 99–100
[~2023-11-21 08:37] MED LIST changes: -ADDERALL 30 MG30 MG; +ADDERALL 30 MG30 MG PO; +AUGMENTIN 500-1 EACH PO; -CEFTRIAXONE 1 GM VIAL ONE; -DEXAMETHASONE SOD PHOS INJ 4 MG/ML SDV ONE; -EPHEDRINE SULFATE INJ 50 MG/ML VIAL ONE; -FENTANYL CITRATE/PF 100MCG/2 ML INJ ONE; -HYDRALAZINE HCL 20 MG/ML VIAL ONE; -IOPAMIDOL 610MG/1ML 300 MG/ML VIAL IV ONE; -IPRAT-ALBUT 0.5-3 ML; +IPRAT-ALBUT 0.5-3 ML INH; -LABETALOL HCL 20 ML ONE; -LACTATED RINGER'S 1,000 ML ONE; -LIDOCAINE HCL 2% LOCAL INJ 5 ML SDV VIAL INJ ONE; -ONDANSETRON HCL INJ 2MG/ML 2ML 2 MG/ML VIAL ONE; -PROPOFOL IV EMULSION 10 MG/ML 20 ML VIAL ONE; -SEVOFLURANE INHAL SOLN 250 ML PEN BTL ONE
[2023-11-21 09:22] LABS: BASOPHILS # (AUTO) 0.1 (0.0-0.1); BASOPHILS % 0.2 % (0.0-1.0); HEMATOCRIT 31.2 % (38.2-49.6); HEMOGLOBIN 9.4 g/dL (14.0-18.0); LYMPHOCYTES # (AUTO) 0.9 (1.0-3.2); LYMPHOCYTES % 4.4 % (18.0-39.1); MEAN CORPUSCULAR HEMOGLOBIN 28.2 pg (28-32); MEAN CORPUSCULAR HGB CONC 30.1 g/dL (31-35); MEAN CORPUSCULAR VOLUME 93.7 fL (81-99); MONOCYTES # (AUTO) 1.5 (0.2-0.8); MONOCYTES % 7.1 % (4.4-11.3); NEUTROPHILS # (AUTO) 18.7 (2.1-6.9); NEUTROPHILS % 87.8 % (38.7-80.0); PLATELET COUNT 271 x10e3/uL (140-360); RED BLOOD COUNT 3.33 x10e6/uL (4.3-5.7); RED CELL DISTRIBUTION WIDTH 15.8 % (11.7-14.4); WHITE BLOOD COUNT 21.31 x10e3/uL (4.8-10.8)
[2023-11-21 09:45] LABS: ALBUMIN 3.2 g/dL (3.5-5.0); ALBUMIN/GLOBULIN RATIO 0.9 (0.8-2.0); ANION GAP 16.5 mmol/L (8-16); BILIRUBIN,TOTAL 0.4 mg/dL (0.2-1.2); CALCIUM 8.7 mg/dL (8.4-10.2); CREATININE, SERUM 1.73 mg/dL (0.72-1.25); POTASSIUM 4.5 mmol/L (3.5-5.1); TOTAL PROTEIN 6.7 g/dL (6.5-8.1)
[2023-11-21] MEDS: LEVOFLOXACIN 750MG/D5W 150ML 150 ML IV SCH (09:46)
[2023-11-21] MEDS: SODIUM CHLORIDE 0.9% 1000ML 1,000 ML IV ONE (09:47)
[2023-11-21 09:54] LABS: INR 1.64; PARTIAL THROMBOPLASTIN TIME 33.4 seconds (23.8-35.5); PROTHROMBIN TIME 20.4 seconds (11.9-14.5)
[2023-11-21] MEDS ORDERED: IOPAMIDOL 370 MG/ML 100 ML INFUS..BTL INJ ONE (10:09)
[2023-11-21] MEDS: SODIUM CHLORIDE 0.9% IV SCH (10:54)
[2023-11-21] MEDS: METRONIDAZOLE 500MG/NS 100ML 100 ML IV SCH (12:05)
[2023-11-21] MEDS ORDERED: SODIUM CHLORIDE FLUSH 10 ML SYR INJ PRN (12:30)
[2023-11-21] MEDS ORDERED: ONDANSETRON HCL INJ 2MG/ML 2ML 2 MG/ML VIAL IV PRN (12:30)
[2023-11-21 13:53] LABS: CLARITY,URINE TURBID (CLEAR); COLOR,URINE BROWN (YELLOW); LEUKOCYTE ESTERASE ,URINE LARGE (NEGATIVE); NITRITE,URINE POSITIVE (NEGATIVE); PH,URINE 6 (5 - 7); PROTEIN,URINE DIPSTICK >=300 (NEGATIVE)
[2023-11-21 13:54] LABS: BILIRUBIN,URINE MODERATE (NEGATIVE); GLUCOSE, URINE 1+ (NEGATIVE); KETONES,URINE 1+ (NEGATIVE)
[2023-11-21 13:58] LABS: BACTERIA,URINE MODERATE /HPF; RBC,URINE >50 /HPF (0-5)
[2023-11-21] MEDS ORDERED: CELEBREX200 MG PO (15:02)
[2023-11-21] MEDS ORDERED: LYRICA100 MG PO (15:02)
[2023-11-21] MEDS ORDERED: ALBUTEROL/IPRATROPIUM 3 ML NEB INH PRN (21:15)
[2023-11-21] MEDS ORDERED: ALBUTEROL/IPRATROPIUM 3 ML NEB NEB PRN (21:15)
[2023-11-22] VITALS (9 sets, daily range): BP systolic 97–162; BP diastolic 63–96; PULSE 72–82; RESP 17–20; TEMP 97–98.9; O2SAT 96–100
[2023-11-22 06:10] LABS: BASOPHILS # (AUTO) 0.1 (0.0-0.1); BASOPHILS % 0.4 % (0.0-1.0); EOSINOPHILS # (AUTO) 0.5 (0.0-0.4); EOSINOPHILS % 3.8 % (0.0-6.0); HEMATOCRIT 28.3 % (38.2-49.6); HEMOGLOBIN 8.7 g/dL (14.0-18.0); LYMPHOCYTES # (AUTO) 1.4 (1.0-3.2); LYMPHOCYTES % 11.9 % (18.0-39.1); MEAN CORPUSCULAR HEMOGLOBIN 28.4 pg (28-32); MEAN CORPUSCULAR HGB CONC 30.7 g/dL (31-35); MEAN CORPUSCULAR VOLUME 92.5 fL (81-99); MONOCYTES % 7.9 % (4.4-11.3); NEUTROPHILS # (AUTO) 9.2 (2.1-6.9); NEUTROPHILS % 75.6 % (38.7-80.0); PLATELET COUNT 234 x10e3/uL (140-360); RED BLOOD COUNT 3.06 x10e6/uL (4.3-5.7); RED CELL DISTRIBUTION WIDTH 15.8 % (11.7-14.4); WHITE BLOOD COUNT 12.15 x10e3/uL (4.8-10.8)
[2023-11-22] MEDS: LEVOTHYROXINE SODIUM 50 MCG TAB PO SCH (06:26)
[2023-11-22 06:44] LABS: ALBUMIN 2.6 g/dL (3.5-5.0); ALBUMIN/GLOBULIN RATIO 0.8 (0.8-2.0); ANION GAP 10.8 mmol/L (8-16); CALCIUM 8.8 mg/dL (8.4-10.2); CREATININE, SERUM 0.9 mg/dL (0.72-1.25); POTASSIUM 3.8 mmol/L (3.5-5.1); TOTAL PROTEIN 5.8 g/dL (6.5-8.1)
[2023-11-22 07:00] LABS: BILIRUBIN,TOTAL 0.4 mg/dL (0.2-1.2)
[2023-11-22] MEDS: PREGABALIN 50 MG CAP PO SCH (08:57)
[2023-11-22] MEDS: TAMSULOSIN HCL 0.4 MG CAP PO SCH (08:58)
[2023-11-22] MEDS: SOLIFENACIN SUCCINATE 5 MG TAB PO SCH (08:58)
[2023-11-22] MEDS: DULOXETINE HCL 20 MG DELAYED RELEASE PO SCH (08:58)
[2023-11-22] MEDS: FAMOTIDINE 20 MG TAB PO SCH (08:58)
[2023-11-22] MEDS: AMLODIPINE BESYLATE 5 MG TAB PO SCH (08:59)
[2023-11-22] MEDS: FERROUS SULFATE 325 MG TAB PO SCH (08:59)
[2023-11-22] MEDS: TRAMADOL HCL 50 MG TAB PO SCH (09:01)
[2023-11-22] MEDS: CYANOCOBALAMIN 1,000 MCG TAB PO SCH (09:02)
[2023-11-22] MEDS: ALBUTEROL/IPRATROPIUM 3 ML NEB INH SCH (15:20)
[2023-11-23] VITALS (12 sets, daily range): BP systolic 115–155; BP diastolic 79–98; PULSE 66–82; RESP 17–23; TEMP 97.6–98.2; O2SAT 95–100
[2023-11-23 06:02] LABS: BASOPHILS # (AUTO) 0.1 (0.0-0.1); BASOPHILS % 0.6 % (0.0-1.0); EOSINOPHILS # (AUTO) 0.5 (0.0-0.4); EOSINOPHILS % 6.5 % (0.0-6.0); HEMATOCRIT 33.1 % (38.2-49.6); HEMOGLOBIN 9.9 g/dL (14.0-18.0); LYMPHOCYTES # (AUTO) 1.4 (1.0-3.2); LYMPHOCYTES % 17.8 % (18.0-39.1); MEAN CORPUSCULAR HEMOGLOBIN 27.7 pg (28-32); MEAN CORPUSCULAR HGB CONC 29.9 g/dL (31-35); MEAN CORPUSCULAR VOLUME 92.7 fL (81-99); MONOCYTES # (AUTO) 0.8 (0.2-0.8); MONOCYTES % 10.1 % (4.4-11.3); NEUTROPHILS # (AUTO) 5.1 (2.1-6.9); NEUTROPHILS % 64.6 % (38.7-80.0); PLATELET COUNT 235 x10e3/uL (140-360); RED BLOOD COUNT 3.57 x10e6/uL (4.3-5.7); RED CELL DISTRIBUTION WIDTH 15.6 % (11.7-14.4)
[2023-11-23 06:34] LABS: % IRON SATURATION 9 % (15-50); IRON 23 ug/dL (65-175); TOTAL IRON BINDING CAPACITY 265 ug/dL (261-478); TRANSFERRIN 189 mg/dL (174-364)
[2023-11-23 06:38] LABS: ALBUMIN 2.8 g/dL (3.5-5.0); ALBUMIN/GLOBULIN RATIO 0.8 (0.8-2.0); ANION GAP 10.7 mmol/L (8-16); BILIRUBIN,TOTAL 0.4 mg/dL (0.2-1.2); CREATININE, SERUM 0.75 mg/dL (0.72-1.25); POTASSIUM 3.7 mmol/L (3.5-5.1); TOTAL PROTEIN 6.2 g/dL (6.5-8.1)
[2023-11-23] MEDS: FLUCONAZOLE 100 MG TAB PO SCH (09:17)
[2023-11-24] VITALS (12 sets, daily range): BP systolic 95–136; BP diastolic 64–84; PULSE 68–82; RESP 18–20; TEMP 97.5–98.3; O2SAT 92–100
[2023-11-24] MEDS: PNEUMOCOCCAL 13 VALENT CONJUGATE VACCINE IM ONE (13:49)
[2023-11-24] MEDS: HEPARIN SOD (PORCINE) 5,000 UNIT/ML VIAL SC SCH (22:00)
[2023-11-25] VITALS (12 sets, daily range): BP systolic 100–178; BP diastolic 50–98; PULSE 60–75; RESP 18–20; TEMP 97.7–98.6; O2SAT 92–100
[2023-11-25 05:28] LABS: BASOPHILS # (AUTO) 0.1 (0.0-0.1); BASOPHILS % 0.9 % (0.0-1.0); EOSINOPHILS # (AUTO) 0.7 (0.0-0.4); EOSINOPHILS % 11.5 % (0.0-6.0); HEMATOCRIT 30.7 % (38.2-49.6); HEMOGLOBIN 9.5 g/dL (14.0-18.0); LYMPHOCYTES # (AUTO) 1.3 (1.0-3.2); LYMPHOCYTES % 23.1 % (18.0-39.1); MEAN CORPUSCULAR HEMOGLOBIN 28.2 pg (28-32); MEAN CORPUSCULAR HGB CONC 30.9 g/dL (31-35); MEAN CORPUSCULAR VOLUME 91.1 fL (81-99); MONOCYTES # (AUTO) 0.6 (0.2-0.8); MONOCYTES % 10.9 % (4.4-11.3); NEUTROPHILS # (AUTO) 3.1 (2.1-6.9); NEUTROPHILS % 53.4 % (38.7-80.0); PLATELET COUNT 257 x10e3/uL (140-360); RED BLOOD COUNT 3.37 x10e6/uL (4.3-5.7); RED CELL DISTRIBUTION WIDTH 15.2 % (11.7-14.4); WHITE BLOOD COUNT 5.76 x10e3/uL (4.8-10.8)
[2023-11-25 05:48] LABS: ANION GAP 11.7 mmol/L (8-16); CALCIUM 8.7 mg/dL (8.4-10.2); CREATININE, SERUM 0.78 mg/dL (0.72-1.25); POTASSIUM 3.7 mmol/L (3.5-5.1)
[2023-11-25] MEDS: METRONIDAZOLE 500MG/NS 100ML 100 ML IV SCH (06:14)
[2023-11-25] MEDS ORDERED: ONDANSETRON HCL 4 MG ORAL DISINTEGRATING TAB PO PRN (08:15)
[2023-11-26] MEDS ORDERED: LEVOFLOXACIN 250 MG TAB PO SCH (09:00)
== END 2023-11-25 21:10 | disposition home or self-care (01) | DRG 871 ==
LOC: ER 08:46 → ERHOLD 12:33 → MED/SURG2 14:15
PROVIDERS: ADMIT Family Medicine; ATTEND Family Medicine
PROC: 3E0333Z Introduction of Anti-inflammatory into Peripheral Vein, Percutaneous Approach (ICD-10-PCS; principal; 2023-11-21)
DX: A41.9 Sepsis, unspecified organism (principal); J69.0 Pneumonitis due to inhalation of food and vomit; J96.21 Acute and chronic respiratory failure with hypoxia; E87.20 Acidosis, unspecified; N17.9 Acute kidney failure, unspecified; B37.0 Candidal stomatitis; N39.0 Urinary tract infection, site not specified; R65.20 Severe sepsis without septic shock; I10 Essential (primary) hypertension; I25.10 Atherosclerotic heart disease of native coronary artery without angina pectoris; E03.9 Hypothyroidism, unspecified; D64.9 Anemia, unspecified; N40.0 Benign prostatic hyperplasia without lower urinary tract symptoms; Z11.52 Encounter for screening for COVID-19; G89.4 Chronic pain syndrome; F41.9 Anxiety disorder, unspecified; M54.50 Low back pain, unspecified; F98.8 Other specified behavioral and emotional disorders with onset usually occurring in childhood and adolescence; Z79.890 Hormone replacement therapy; Z93.1 Gastrostomy status; Z96.0 Presence of urogenital implants; Z85.118 Personal history of other malignant neoplasm of bronchus and lung; Z92.21 Personal history of antineoplastic chemotherapy; Z92.3 Personal history of irradiation; Z85.89 Personal history of malignant neoplasm of other organs and systems; Z82.49 Family history of ischemic heart disease and other diseases of the circulatory system; Z80.3 Family history of malignant neoplasm of breast
CPT/HCPCS: 36415; 71046; 71260; 80048; 80053; 81001; 83540; 83605; 83735; 84466; 85025; 85610; 85730; 87040; 87070; 87205; 94640; 94799; 99252; 99284; J1644; J7030; Q9967; U0002

== ENCOUNTER → 2023-12-26 | Day surgery (SDC) | payer BC, MEDICARE ==
[~2023-12-26] MED LIST changes: +ACETAMINOPHEN 1000 MG/100 ML 100 ML IV ONE; +CEFTRIAXONE 1 GM VIAL ONE; +CELEBREX200 MG PO; +DEXAMETHASONE SOD PHOS INJ 4 MG/ML SDV ONE; +EPHEDRINE SULFATE INJ 50 MG/ML VIAL ONE; +FENTANYL CITRATE/PF 100MCG/2 ML INJ ONE; +GENTAMICIN 80MG/NS 100 ML 200 ML IV ONE; +GLYCOPYRROLATE INJ 0.2 MG/ML VIAL ONE; +HYDRALAZINE HCL 20 MG/ML VIAL ONE; +IOPAMIDOL 610MG/1ML 300 MG/ML VIAL IV ONE; +KETAMINE 50MG/5ML SYR ONE; +LACTATED RINGER'S 1,000 ML ONE; +LIDOCAINE HCL 2% LOCAL INJ 5 ML SDV VIAL INJ ONE; +LYRICA100 MG PO; +ONDANSETRON HCL INJ 2MG/ML 2ML 2 MG/ML VIAL ONE; +PHENYLEPHRINE HCL 1% 10 MG/ML VIAL ONE; +PROPOFOL IV EMULSION 10 MG/ML 20 ML VIAL ONE; +SEVOFLURANE INHAL SOLN 250 ML PEN BTL ONE
[2023-12-26 06:47] LABS: BASOPHILS % 0.3 % (0.0-1.0); EOSINOPHILS # (AUTO) 0.7 (0.0-0.4); EOSINOPHILS % 7.7 % (0.0-6.0); HEMATOCRIT 34.2 % (38.2-49.6); HEMOGLOBIN 10.2 g/dL (14.0-18.0); LYMPHOCYTES # (AUTO) 1.6 (1.0-3.2); MEAN CORPUSCULAR HEMOGLOBIN 27.2 pg (28-32); MEAN CORPUSCULAR HGB CONC 29.8 g/dL (31-35); MEAN CORPUSCULAR VOLUME 91.2 fL (81-99); MONOCYTES # (AUTO) 0.9 (0.2-0.8); MONOCYTES % 10.2 % (4.4-11.3); NEUTROPHILS # (AUTO) 5.5 (2.1-6.9); NEUTROPHILS % 63.6 % (38.7-80.0); PLATELET COUNT 277 x10e3/uL (140-360); RED BLOOD COUNT 3.75 x10e6/uL (4.3-5.7); RED CELL DISTRIBUTION WIDTH 15.4 % (11.7-14.4)
[2023-12-26 07:10] LABS: CALCIUM 9.1 mg/dL (8.4-10.2); CREATININE, SERUM 0.94 mg/dL (0.72-1.25)
[2023-12-26] MEDS: PHENAZOPYRIDINE HCL 100 MG TAB ONE (09:18)
[2023-12-26 09:55] VITALS: BP 139/85; PULSE 78; RESP 16; O2SAT 97
== END | disposition home or self-care (01) ==
LOC: OR 05:48
PROVIDERS: ATTEND Urology
DX: N20.0 Calculus of kidney (principal); Z46.6 Encounter for fitting and adjustment of urinary device; N13.30 Unspecified hydronephrosis; N35.919 Unspecified urethral stricture, male, unspecified site; N28.89 Other specified disorders of kidney and ureter; N40.1 Benign prostatic hyperplasia with lower urinary tract symptoms; R39.14 Feeling of incomplete bladder emptying; R81 Glycosuria; R80.9 Proteinuria, unspecified; C11.1 Malignant neoplasm of posterior wall of nasopharynx; I10 Essential (primary) hypertension; Z84.1 Family history of disorders of kidney and ureter; E03.9 Hypothyroidism, unspecified; K21.9 Gastro-esophageal reflux disease without esophagitis; J69.0 Pneumonitis due to inhalation of food and vomit; F32.A Depression, unspecified; Z79.60 Long term (current) use of unspecified immunomodulators and immunosuppressants; Z79.899 Other long term (current) drug therapy; Z92.3 Personal history of irradiation
CPT/HCPCS: 36415; 52356; 74018; 74420; 80048; 84550; 85025; 87086; 88300; C1766; C1769; C2617; J0131; J0360; J0696; J1100; J1580; J2001; J2371; J2405; J2704; J3010; J7121; Q9967

== ENCOUNTER 2024-01-02 08:27 | Observation (INO) | payer BC, MEDICARE ==
[2024-01-02] VITALS (10 sets, daily range): BP systolic 118–159; BP diastolic 72–92; PULSE 79–88; RESP 18–19; TEMP 97.8–99; O2SAT 92–98
[~2024-01-02] VITALS: Ht 198.1 cm; Wt 89.8 kg
[~2024-01-02 08:27] MED LIST changes: -ACETAMINOPHEN 1000 MG/100 ML 100 ML IV ONE; -CEFTRIAXONE 1 GM VIAL ONE; -DEXAMETHASONE SOD PHOS INJ 4 MG/ML SDV ONE; -EPHEDRINE SULFATE INJ 50 MG/ML VIAL ONE; -FENTANYL CITRATE/PF 100MCG/2 ML INJ ONE; -GENTAMICIN 80MG/NS 100 ML 200 ML IV ONE; -GLYCOPYRROLATE INJ 0.2 MG/ML VIAL ONE; -HYDRALAZINE HCL 20 MG/ML VIAL ONE; -IOPAMIDOL 610MG/1ML 300 MG/ML VIAL IV ONE; -KETAMINE 50MG/5ML SYR ONE; -LACTATED RINGER'S 1,000 ML ONE; -LIDOCAINE HCL 2% LOCAL INJ 5 ML SDV VIAL INJ ONE; -ONDANSETRON HCL INJ 2MG/ML 2ML 2 MG/ML VIAL ONE; -PHENYLEPHRINE HCL 1% 10 MG/ML VIAL ONE; -PROPOFOL IV EMULSION 10 MG/ML 20 ML VIAL ONE; -SEVOFLURANE INHAL SOLN 250 ML PEN BTL ONE
[2024-01-02 09:00] LABS: BASOPHILS % 0.2 % (0.0-1.0); EOSINOPHILS # (AUTO) 0.4 (0.0-0.4); EOSINOPHILS % 2.9 % (0.0-6.0); HEMATOCRIT 30.1 % (38.2-49.6); HEMOGLOBIN 8.9 g/dL (14.0-18.0); LYMPHOCYTES # (AUTO) 1.1 (1.0-3.2); LYMPHOCYTES % 7.8 % (18.0-39.1); MEAN CORPUSCULAR HEMOGLOBIN 26.7 pg (28-32); MEAN CORPUSCULAR HGB CONC 29.6 g/dL (31-35); MEAN CORPUSCULAR VOLUME 90.4 fL (81-99); MONOCYTES # (AUTO) 0.9 (0.2-0.8); MONOCYTES % 6.9 % (4.4-11.3); NEUTROPHILS # (AUTO) 11.2 (2.1-6.9); NEUTROPHILS % 81.9 % (38.7-80.0); PLATELET COUNT 331 x10e3/uL (140-360); RED BLOOD COUNT 3.33 x10e6/uL (4.3-5.7); RED CELL DISTRIBUTION WIDTH 15.1 % (11.7-14.4); WHITE BLOOD COUNT 13.62 x10e3/uL (4.8-10.8)
[2024-01-02 09:22] LABS: ALBUMIN/GLOBULIN RATIO 0.7 (0.8-2.0); ANION GAP 11.8 mmol/L (8-16); BILIRUBIN,TOTAL 0.3 mg/dL (0.2-1.2); CALCIUM 9.1 mg/dL (8.4-10.2); CREATININE, SERUM 0.89 mg/dL (0.72-1.25); POTASSIUM 3.8 mmol/L (3.5-5.1); TOTAL PROTEIN 7.4 g/dL (6.5-8.1)
[2024-01-02 09:47] LABS: TROPONIN I 0.008 ng/mL (0-0.300)
[2024-01-02] MEDS: DEXAMETHASONE SOD PHOS 10 MG/1 ML VIAL IV ONE (09:52)
[2024-01-02] MEDS: OLOPATADINE 5 ML BTL OP STA (17:37)
[2024-01-02] MEDS ORDERED: ALBUTEROL/IPRATROPIUM 3 ML NEB INH PRN (19:30)
[2024-01-02] MEDS: FUROSEMIDE INJ 10 MG/ML 2 ML VIAL IV ONE (20:37)
[2024-01-03] MEDS: LEVOTHYROXINE SODIUM 50 MCG TAB PO SCH (06:00)
[2024-01-03 06:15] LABS: BASOPHILS % 0.2 % (0.0-1.0); HEMATOCRIT 28.8 % (38.2-49.6); HEMOGLOBIN 8.9 g/dL (14.0-18.0); LYMPHOCYTES # (AUTO) 1.3 (1.0-3.2); LYMPHOCYTES % 13.3 % (18.0-39.1); MEAN CORPUSCULAR HEMOGLOBIN 27.1 pg (28-32); MEAN CORPUSCULAR HGB CONC 30.9 g/dL (31-35); MEAN CORPUSCULAR VOLUME 87.5 fL (81-99); MONOCYTES # (AUTO) 0.6 (0.2-0.8); MONOCYTES % 6.5 % (4.4-11.3); NEUTROPHILS # (AUTO) 7.7 (2.1-6.9); NEUTROPHILS % 79.6 % (38.7-80.0); PLATELET COUNT 337 x10e3/uL (140-360); RED BLOOD COUNT 3.29 x10e6/uL (4.3-5.7); RED CELL DISTRIBUTION WIDTH 14.8 % (11.7-14.4); WHITE BLOOD COUNT 9.69 x10e3/uL (4.8-10.8)
[2024-01-03 06:30] VITALS: PULSE 95; RESP 20; O2SAT 95
[2024-01-03 06:36] LABS: ANION GAP 11.1 mmol/L (8-16); CALCIUM 9.3 mg/dL (8.4-10.2); CREATININE, SERUM 0.78 mg/dL (0.72-1.25); POTASSIUM 4.1 mmol/L (3.5-5.1)
[2024-01-03 08:32] VITALS: BP 155/85; PULSE 78; RESP 18; TEMP 98.5; O2SAT 97
[2024-01-03] MEDS: PREGABALIN 50 MG CAP PO SCH (09:19)
[2024-01-03] MEDS: CELECOXIB 200 MG CAP PO SCH (09:20)
[2024-01-03] MEDS: SOLIFENACIN SUCCINATE 5 MG TAB PO SCH (09:20)
[2024-01-03] MEDS: CYANOCOBALAMIN 1,000 MCG TAB PO SCH (09:20)
[2024-01-03] MEDS: TAMSULOSIN HCL 0.4 MG CAP PO SCH (09:20)
[2024-01-03] MEDS: FAMOTIDINE 20 MG TAB PO SCH (09:20)
[2024-01-03] MEDS: FERROUS SULFATE 325 MG TAB PO SCH (09:21)
[2024-01-03] MEDS: AMLODIPINE BESYLATE 5 MG TAB PO SCH (09:21)
[2024-01-03] MEDS: LORATADINE 10 MG TAB PO SCH (09:21)
[2024-01-03] MEDS: TRAMADOL HCL 50 MG TAB PO SCH (09:22)
[2024-01-03] MEDS: BUPROPION HCL 100 MG TAB PO SCH (09:22)
== END 2024-01-03 10:08 | disposition home or self-care (01) ==
LOC: ER 08:32 → ERHOLD 09:14 → MED/SURG2 13:00
PROVIDERS: ADMIT Family Medicine; ATTEND Family Medicine
DX: T88.6XXA Anaphylactic reaction due to adverse effect of correct drug or medicament properly administered, initial encounter (principal); T78.3XXA Angioneurotic edema, initial encounter; T36.1X5A Adverse effect of cephalosporins and other beta-lactam antibiotics, initial encounter; Y92.019 Unspecified place in single-family (private) house as the place of occurrence of the external cause; D72.828 Other elevated white blood cell count; D64.9 Anemia, unspecified; I10 Essential (primary) hypertension; N40.0 Benign prostatic hyperplasia without lower urinary tract symptoms; F41.9 Anxiety disorder, unspecified; Z85.818 Personal history of malignant neoplasm of other sites of lip, oral cavity, and pharynx; I25.10 Atherosclerotic heart disease of native coronary artery without angina pectoris
CPT/HCPCS: 36415 ×2; 71045; 80048; 80053; 84484; 85025 ×2; 93005; 94799 ×2; 99284; G0378 ×2; J1100; J1940

== ENCOUNTER 2024-02-07 22:33 | Inpatient (IN) | payer MEDICARE, OTHER ==
[~2024-02-07] VITALS: Ht 195.6 cm; Wt 90.7 kg
[~2024-02-07 22:33] MED LIST changes: +AMLODIPINE BES2.5 MG GT; -AMLODIPINE BES2.5 MG PO; +BUPROPION HCL100 MG GT; -BUPROPION HCL100 MG PO; +CELEBREX200 MG GT; -CELEBREX200 MG PO; +CETIRIZINE HCL10 MG GT; -CETIRIZINE HCL10 MG PO; +CYMBALTA20 MG GT; -CYMBALTA20 MG PO; +FEROSUL325 MG GT; -FEROSUL325 MG PO; +FLOMAX0.4 MG GT; -FLOMAX0.4 MG PO; +LEVOTHYROXINE175 MCG GT; -LEVOTHYROXINE175 MCG PO; +LYRICA100 MG GT; -LYRICA100 MG PO; +PEPCID20 MG GT; -PEPCID20 MG PO; +ULTRAM 50MG50 MG GT; -ULTRAM 50MG50 MG PO; +VESICARE5 MG GT; -VESICARE5 MG PO; +VITAMIN B-121000 MC1 GT; -VITAMIN B-121000 MC1 PO
[2024-02-07 22:48] VITALS: TEMP 101.2
[2024-02-07 23:16] LABS: BASOPHILS # (AUTO) 0.1 (0.0-0.1); BASOPHILS % 0.3 % (0.0-1.0); EOSINOPHILS # (AUTO) 0.1 (0.0-0.4); EOSINOPHILS % 0.6 % (0.0-6.0); HEMATOCRIT 34.5 % (38.2-49.6); HEMOGLOBIN 10.6 g/dL (14.0-18.0); LYMPHOCYTES # (AUTO) 1.1 (1.0-3.2); LYMPHOCYTES % 5.3 % (18.0-39.1); MEAN CORPUSCULAR HEMOGLOBIN 27.5 pg (28-32); MEAN CORPUSCULAR HGB CONC 30.7 g/dL (31-35); MEAN CORPUSCULAR VOLUME 89.4 fL (81-99); MONOCYTES % 9.2 % (4.4-11.3); NEUTROPHILS # (AUTO) 17.7 (2.1-6.9); NEUTROPHILS % 83.7 % (38.7-80.0); PLATELET COUNT 384 x10e3/uL (140-360); RED BLOOD COUNT 3.86 x10e6/uL (4.3-5.7); RED CELL DISTRIBUTION WIDTH 17.8 % (11.7-14.4); WHITE BLOOD COUNT 21.18 x10e3/uL (4.8-10.8)
[2024-02-07] MEDS: SODIUM CHLORIDE 0.9% 1000ML 1,000 ML IV STA (23:21)
[2024-02-07] MEDS: ACETAMINOPHEN 325 MG TAB PO STA (23:22)
[2024-02-07 23:35] LABS: ALANINE AMINOTRANSFERASE 8 IU/L (0-55); ALBUMIN 3.3 g/dL (3.5-5.0); ALBUMIN/GLOBULIN RATIO 0.8 (0.8-2.0); ALKALINE PHOSPHATASE 99 IU/L (40-150); ANION GAP 14.1 mmol/L (8-16); BILIRUBIN,TOTAL 0.5 mg/dL (0.2-1.2); BLOOD UREA NITROGEN 20 mg/dL (7-26); BUN/CREATININE RATIO 19 (6-25); CALCIUM 9.2 mg/dL (8.4-10.2); CARBON DIOXIDE 27 mmol/L (22-29); CHLORIDE 99 mmol/L (98-107); CREATINE KINASE 39 IU/L (30-200); CREATININE, SERUM 1.05 mg/dL (0.72-1.25); EST GLOMERULAR FILTRATION RATE 77 ML/MIN (>=60); GLUCOSE 126 mg/dL (74-118); POTASSIUM 4.1 mmol/L (3.5-5.1); SODIUM 136 mmol/L (136-145); TOTAL PROTEIN 7.7 g/dL (6.5-8.1)
[2024-02-07 23:42] LABS: TROPONIN I < 0.001 ng/mL (0-0.300)
[2024-02-08] VITALS (18 sets, daily range): BP systolic 92–194; BP diastolic 59–100; PULSE 78–106; RESP 18–20; TEMP 98.1–103; O2SAT 83–100
[2024-02-08] MEDS ORDERED: Morphine 4mg INJECTION 4 MG/ML INJ IV PRN
[2024-02-08] MEDS ORDERED: ONDANSETRON HCL INJ 2MG/ML 2ML 2 MG/ML VIAL IV PRN
[2024-02-08] MEDS ORDERED: FLONASE ALLERG9.9 ML INH (01:56)
[2024-02-08] MEDS: SODIUM CHLORIDE 0.9% 1000ML 1,000 ML IV SCH (01:58)
[2024-02-08 03:23] LABS: BILIRUBIN,URINE NEGATIVE (NEGATIVE); CLARITY,URINE CLEAR (CLEAR); COLOR,URINE YELLOW (YELLOW); GLUCOSE, URINE NEGATIVE (NEGATIVE); KETONES,URINE NEGATIVE (NEGATIVE); LEUKOCYTE ESTERASE ,URINE NEGATIVE (NEGATIVE); NITRITE,URINE POSITIVE (NEGATIVE); PH,URINE 6.5 (5 - 7); PROTEIN,URINE DIPSTICK 2+ (NEGATIVE); URINE UROBILINOGEN 0.2 mg/dL (0.2 - 1)
[2024-02-08 03:26] LABS: BACTERIA,URINE MANY /HPF; EPITHELIAL CELLS,URINE FEW /LPF; RBC,URINE >50 /HPF (0-5); TRANSITIONAL EPI CELLS,URINE FEW; WBC,URINE (MAN) >50 /HPF (0-5)
[2024-02-08 03:27] LABS: MUCUS,URINE FEW (RARE)
[2024-02-08] MEDS: ACETAMINOPHEN 325 MG TAB PO PRN (03:37)
[2024-02-08] MEDS ORDERED: ALBUTEROL/IPRATROPIUM 3 ML NEB NEB PRN (05:15)
[2024-02-08] MEDS: LEVOTHYROXINE SODIUM 100 MCG TAB PO SCH (05:53)
[2024-02-08] MEDS: AMLODIPINE BESYLATE 5 MG TAB PO ONE (05:57)
[2024-02-08 06:43] LABS: BASOPHILS # (AUTO) 0.1 (0.0-0.1); BASOPHILS % 0.2 % (0.0-1.0); EOSINOPHILS % 0.1 % (0.0-6.0); HEMATOCRIT 28.6 % (38.2-49.6); HEMOGLOBIN 8.9 g/dL (14.0-18.0); LYMPHOCYTES # (AUTO) 1.1 (1.0-3.2); LYMPHOCYTES % 4.9 % (18.0-39.1); MEAN CORPUSCULAR HEMOGLOBIN 27.6 pg (28-32); MEAN CORPUSCULAR HGB CONC 31.1 g/dL (31-35); MEAN CORPUSCULAR VOLUME 88.5 fL (81-99); MONOCYTES # (AUTO) 2.6 (0.2-0.8); MONOCYTES % 11.4 % (4.4-11.3); NEUTROPHILS # (AUTO) 18.8 (2.1-6.9); NEUTROPHILS % 82.2 % (38.7-80.0); PLATELET COUNT 295 x10e3/uL (140-360); RED BLOOD COUNT 3.23 x10e6/uL (4.3-5.7); RED CELL DISTRIBUTION WIDTH 17.7 % (11.7-14.4); WHITE BLOOD COUNT 22.89 x10e3/uL (4.8-10.8)
[2024-02-08 07:05] LABS: TROPONIN I 0.005 ng/mL (0-0.300)
[2024-02-08 07:22] LABS: ALBUMIN 2.6 g/dL (3.5-5.0); ALBUMIN/GLOBULIN RATIO 0.7 (0.8-2.0); ANION GAP 12.2 mmol/L (8-16); BILIRUBIN,TOTAL 0.5 mg/dL (0.2-1.2); CALCIUM 8.2 mg/dL (8.4-10.2); CREATININE, SERUM 0.86 mg/dL (0.72-1.25); TOTAL PROTEIN 6.2 g/dL (6.5-8.1)
[2024-02-08 07:28] LABS: POTASSIUM 3.2 mmol/L (3.5-5.1)
[2024-02-08] MEDS: TAMSULOSIN HCL 0.4 MG CAP PO SCH (09:19)
[2024-02-08] MEDS: PREGABALIN 50 MG CAP PO SCH (09:19)
[2024-02-08] MEDS: SOLIFENACIN SUCCINATE 5 MG TAB PO SCH (09:19)
[2024-02-08] MEDS: CELECOXIB 200 MG CAP PO SCH (09:19)
[2024-02-08] MEDS: FAMOTIDINE 20 MG TAB PO SCH (09:20)
[2024-02-08] MEDS: FERROUS SULFATE 325 MG TAB PO SCH (09:20)
[2024-02-08] MEDS: DULOXETINE HCL 20 MG DELAYED RELEASE PO SCH (10:38)
[2024-02-08] MEDS: ALBUTEROL/IPRATROPIUM 3 ML NEB INH PRN (11:11)
[2024-02-08] MEDS ORDERED: IOPAMIDOL 370 MG/ML 100 ML INFUS..BTL INJ ONE (12:23)
[2024-02-09] VITALS (13 sets, daily range): BP systolic 92–124; BP diastolic 52–69; PULSE 77–96; RESP 16–19; TEMP 97.8–99.4; O2SAT 94–100
[2024-02-09 06:53] LABS: BASOPHILS # (AUTO) 0.1 (0.0-0.1); BASOPHILS % 0.3 % (0.0-1.0); EOSINOPHILS # (AUTO) 0.1 (0.0-0.4); EOSINOPHILS % 0.7 % (0.0-6.0); HEMATOCRIT 29.9 % (38.2-49.6); HEMOGLOBIN 8.9 g/dL (14.0-18.0); LYMPHOCYTES # (AUTO) 0.5 (1.0-3.2); LYMPHOCYTES % 2.6 % (18.0-39.1); MEAN CORPUSCULAR HEMOGLOBIN 26.7 pg (28-32); MEAN CORPUSCULAR HGB CONC 29.8 g/dL (31-35); MEAN CORPUSCULAR VOLUME 89.8 fL (81-99); MONOCYTES # (AUTO) 1.7 (0.2-0.8); MONOCYTES % 8.7 % (4.4-11.3); NEUTROPHILS # (AUTO) 16.8 (2.1-6.9); NEUTROPHILS % 86.5 % (38.7-80.0); PLATELET COUNT 250 x10e3/uL (140-360); RED BLOOD COUNT 3.33 x10e6/uL (4.3-5.7); RED CELL DISTRIBUTION WIDTH 18.1 % (11.7-14.4); WHITE BLOOD COUNT 19.41 x10e3/uL (4.8-10.8)
[2024-02-09 07:19] LABS: ALBUMIN 2.5 g/dL (3.5-5.0); ALBUMIN/GLOBULIN RATIO 0.6 (0.8-2.0); ANION GAP 13.6 mmol/L (8-16); BILIRUBIN,TOTAL 0.5 mg/dL (0.2-1.2); CALCIUM 8.5 mg/dL (8.4-10.2); CREATININE, SERUM 0.85 mg/dL (0.72-1.25); MAGNESIUM 1.7 MG/DL (1.3-2.1); POTASSIUM 3.6 mmol/L (3.5-5.1); TOTAL PROTEIN 6.5 g/dL (6.5-8.1)
[2024-02-09 07:34] LABS: CREATINE KINASE 35 IU/L (30-200)
[2024-02-09 07:43] LABS: TROPONIN I < 0.001 ng/mL (0-0.300)
[2024-02-09] MEDS: ALBUTEROL/IPRATROPIUM 3 ML NEB INH SCH (09:41)
[2024-02-09 10:32] LABS: % IRON SATURATION 8 % (15-50); IRON 16 ug/dL (65-175); TOTAL IRON BINDING CAPACITY 211 ug/dL (261-478); TRANSFERRIN 151 mg/dL (174-364)
[2024-02-09] MEDS: IRON SUCROSE 100 MG in SODIUM CHLORIDE 0.9% 100 ML IV SCH (11:24)
[2024-02-09 18:26] LABS: TROPONIN I 0.015 ng/mL (0-0.300)
[2024-02-09] MEDS: TRAMADOL HCL 50 MG TAB PO SCH (23:49)
[2024-02-10] VITALS (12 sets, daily range): BP systolic 78–127; BP diastolic 61–83; PULSE 70–89; RESP 16–18; TEMP 97.2–99.2; O2SAT 94–100
[2024-02-10 06:11] LABS: BASOPHILS % 0.3 % (0.0-1.0); EOSINOPHILS # (AUTO) 0.4 (0.0-0.4); EOSINOPHILS % 3.4 % (0.0-6.0); HEMATOCRIT 24.2 % (38.2-49.6); LYMPHOCYTES # (AUTO) 0.7 (1.0-3.2); LYMPHOCYTES % 6.1 % (18.0-39.1); MEAN CORPUSCULAR HEMOGLOBIN 26.9 pg (28-32); MEAN CORPUSCULAR HGB CONC 30.6 g/dL (31-35); MONOCYTES # (AUTO) 1.2 (0.2-0.8); MONOCYTES % 11.2 % (4.4-11.3); NEUTROPHILS # (AUTO) 8.6 (2.1-6.9); PLATELET COUNT 230 x10e3/uL (140-360); RED BLOOD COUNT 2.75 x10e6/uL (4.3-5.7); RED CELL DISTRIBUTION WIDTH 17.9 % (11.7-14.4); WHITE BLOOD COUNT 11.03 x10e3/uL (4.8-10.8)
[2024-02-10 06:18] LABS: HEMOGLOBIN 7.4 g/dL (14.0-18.0)
[2024-02-10 06:46] LABS: ANION GAP 11.1 mmol/L (8-16); CALCIUM 8.2 mg/dL (8.4-10.2); CREATININE, SERUM 0.89 mg/dL (0.72-1.25)
[2024-02-10 06:48] LABS: POTASSIUM 3.1 mmol/L (3.5-5.1)
[2024-02-11] VITALS (11 sets, daily range): BP systolic 98–139; BP diastolic 65–87; PULSE 66–87; RESP 16–22; TEMP 97.3–98.3; O2SAT 95–100
[2024-02-11 05:59] LABS: BASOPHILS % 0.4 % (0.0-1.0); EOSINOPHILS # (AUTO) 0.4 (0.0-0.4); EOSINOPHILS % 5.5 % (0.0-6.0); HEMATOCRIT 25.8 % (38.2-49.6); LYMPHOCYTES # (AUTO) 0.7 (1.0-3.2); LYMPHOCYTES % 9.3 % (18.0-39.1); MEAN CORPUSCULAR HEMOGLOBIN 26.7 pg (28-32); MEAN CORPUSCULAR HGB CONC 29.8 g/dL (31-35); MEAN CORPUSCULAR VOLUME 89.6 fL (81-99); MONOCYTES # (AUTO) 0.8 (0.2-0.8); MONOCYTES % 10.5 % (4.4-11.3); NEUTROPHILS # (AUTO) 5.9 (2.1-6.9); NEUTROPHILS % 73.8 % (38.7-80.0); PLATELET COUNT 266 x10e3/uL (140-360); RED BLOOD COUNT 2.88 x10e6/uL (4.3-5.7); WHITE BLOOD COUNT 7.94 x10e3/uL (4.8-10.8)
[2024-02-11 06:06] LABS: HEMOGLOBIN 7.7 g/dL (14.0-18.0)
[2024-02-11 06:20] LABS: ANION GAP 11.5 mmol/L (8-16); CALCIUM 8.8 mg/dL (8.4-10.2); CREATININE, SERUM 0.86 mg/dL (0.72-1.25); POTASSIUM 3.5 mmol/L (3.5-5.1)
[2024-02-12] VITALS (9 sets, daily range): BP systolic 110–148; BP diastolic 76–88; PULSE 71–88; RESP 17–20; TEMP 97.6–98.1; O2SAT 95–100
[2024-02-12 06:21] LABS: BASOPHILS % 0.4 % (0.0-1.0); EOSINOPHILS # (AUTO) 0.5 (0.0-0.4); EOSINOPHILS % 6.7 % (0.0-6.0); HEMATOCRIT 25.4 % (38.2-49.6); HEMOGLOBIN 7.5 g/dL (14.0-18.0); LYMPHOCYTES # (AUTO) 0.9 (1.0-3.2); LYMPHOCYTES % 11.7 % (18.0-39.1); MEAN CORPUSCULAR HEMOGLOBIN 26.3 pg (28-32); MEAN CORPUSCULAR HGB CONC 29.5 g/dL (31-35); MEAN CORPUSCULAR VOLUME 89.1 fL (81-99); MONOCYTES # (AUTO) 0.8 (0.2-0.8); MONOCYTES % 10.5 % (4.4-11.3); NEUTROPHILS # (AUTO) 5.4 (2.1-6.9); NEUTROPHILS % 70.4 % (38.7-80.0); PLATELET COUNT 251 x10e3/uL (140-360); RED BLOOD COUNT 2.85 x10e6/uL (4.3-5.7); RED CELL DISTRIBUTION WIDTH 17.9 % (11.7-14.4); WHITE BLOOD COUNT 7.72 x10e3/uL (4.8-10.8)
[2024-02-12] MEDS ORDERED: ONDANSETRON HCL 4 MG ORAL DISINTEGRATING TAB PO PRN (17:00)
== END 2024-02-12 17:50 | disposition home or self-care (01) | DRG 177 ==
LOC: ER 22:38 → ERHOLD 23:52 → MED/SURG3 02-08 01:24
PROVIDERS: ADMIT Family Medicine; ATTEND Family Medicine
DX: J69.0 Pneumonitis due to inhalation of food and vomit (principal); G93.41 Metabolic encephalopathy; J96.01 Acute respiratory failure with hypoxia; N39.0 Urinary tract infection, site not specified; N12 Tubulo-interstitial nephritis, not specified as acute or chronic; I10 Essential (primary) hypertension; E03.9 Hypothyroidism, unspecified; N40.0 Benign prostatic hyperplasia without lower urinary tract symptoms; D64.9 Anemia, unspecified; Z11.52 Encounter for screening for COVID-19; Z85.09 Personal history of malignant neoplasm of other digestive organs; Z79.890 Hormone replacement therapy; Z92.3 Personal history of irradiation; Z92.21 Personal history of antineoplastic chemotherapy; R13.10 Dysphagia, unspecified; B96.5 Pseudomonas (aeruginosa) (mallei) (pseudomallei) as the cause of diseases classified elsewhere; N20.0 Calculus of kidney
CPT/HCPCS: 36415; 71045; 71260; 74177; 80048; 80053; 81001; 82550; 82948; 83540; 83605; 83690; 83735; 83880; 84466; 84484; 85025; 87040; 87086; 87186; 87400; 87420; 93005; 94640; 94667; 94668; 94799; 99252; 99284; J1756; J2543; J7030; J7050; Q9967; U0002

== ENCOUNTER 2024-02-15 08:10 | Inpatient (IN) | payer MEDICARE, OTHER ==
[~2024-02-15] VITALS: Ht 195.6 cm; Wt 90.7 kg
[~2024-02-15 08:10] MED LIST changes: +FLONASE ALLERG9.9 ML INH
[2024-02-15 09:03] LABS: BASOPHILS # (AUTO) 0.1 (0.0-0.1); BASOPHILS % 0.4 % (0.0-1.0); EOSINOPHILS # (AUTO) 0.1 (0.0-0.4); EOSINOPHILS % 0.8 % (0.0-6.0); HEMOGLOBIN 10.6 g/dL (14.0-18.0); LYMPHOCYTES # (AUTO) 1.1 (1.0-3.2); MEAN CORPUSCULAR HEMOGLOBIN 26.5 pg (28-32); MEAN CORPUSCULAR HGB CONC 30.3 g/dL (31-35); MEAN CORPUSCULAR VOLUME 87.5 fL (81-99); MONOCYTES % 8.8 % (4.4-11.3); NEUTROPHILS # (AUTO) 8.9 (2.1-6.9); NEUTROPHILS % 79.4 % (38.7-80.0); PLATELET COUNT 418 x10e3/uL (140-360); RED CELL DISTRIBUTION WIDTH 17.9 % (11.7-14.4); WHITE BLOOD COUNT 11.25 x10e3/uL (4.8-10.8)
[2024-02-15 09:13] LABS: INR 0.97; PROTHROMBIN TIME 13.4 seconds (11.9-14.5)
[2024-02-15] MEDS: ALBUTEROL/IPRATROPIUM 3 ML NEB NEB ONE (09:13)
[2024-02-15 09:14] LABS: PARTIAL THROMBOPLASTIN TIME 40.9 seconds (23.8-35.5)
[2024-02-15 09:22] LABS: ALBUMIN 2.7 g/dL (3.5-5.0); ALBUMIN/GLOBULIN RATIO 0.6 (0.8-2.0); ANION GAP 16.6 mmol/L (8-16); BILIRUBIN,TOTAL 0.3 mg/dL (0.2-1.2); CALCIUM 9.3 mg/dL (8.4-10.2); CREATININE, SERUM 0.89 mg/dL (0.72-1.25); MAGNESIUM 1.6 MG/DL (1.3-2.1); POTASSIUM 3.6 mmol/L (3.5-5.1); TOTAL PROTEIN 7.4 g/dL (6.5-8.1)
[2024-02-15] MEDS: SODIUM CHLORIDE 0.9% 1000ML 1,000 ML IV STA (09:27)
[2024-02-15] MEDS: MEROPENEM 1 GM in SODIUM CHLORIDE 0.9% 100 ML IV SCH ×2 (09:27→16:21)
[2024-02-15 09:30] LABS: TROPONIN I 0.011 ng/mL (0-0.300)
[2024-02-15 09:38] VITALS: PULSE 90; RESP 16; TEMP 99
[2024-02-15 09:41] LABS: BILIRUBIN,URINE NEGATIVE (NEGATIVE); CLARITY,URINE TURBID (CLEAR); COLOR,URINE YELLOW (YELLOW); GLUCOSE, URINE NEGATIVE (NEGATIVE); KETONES,URINE 1+ (NEGATIVE); LEUKOCYTE ESTERASE ,URINE MODERATE (NEGATIVE); NITRITE,URINE POSITIVE (NEGATIVE); PH,URINE 8.5 (5 - 7); PROTEIN,URINE DIPSTICK 1+ (NEGATIVE); URINE UROBILINOGEN 1 mg/dL (0.2 - 1)
[2024-02-15 09:44] LABS: INFLUENZAE A&B ANTIGEN (RAPID) NEGATIVE (NEGATIVE); RESPIRATORY SYNC. VIRUS NEGATIVE (NEGATIVE)
[2024-02-15 09:45] LABS: BACTERIA,URINE MODERATE /HPF; EPITHELIAL CELLS,URINE FEW /LPF; RBC,URINE 21-50 /HPF (0-5); WBC,URINE (MAN) >50 /HPF (0-5)
[2024-02-15] MEDS ORDERED: ONDANSETRON HCL INJ 2MG/ML 2ML 2 MG/ML VIAL IV PRN (10:00)
[2024-02-15] MEDS: HYDRALAZINE HCL 20 MG/ML VIAL IV STA (10:21)
[2024-02-15] MEDS: Doxycycline IV 100 MG in SODIUM CHLORIDE 0.9% 100 ML IV SCH (10:27)
[2024-02-15 11:15] VITALS: BP 183/96; PULSE 75; RESP 20; TEMP 98.9; O2SAT 98
[2024-02-15 11:56] VITALS: BP 183/96; PULSE 99; RESP 18; TEMP 98.9; O2SAT 95
[2024-02-15] MEDS: ACETAMINOPHEN 325 MG/10 ML UDC NG PRN (12:36)
[2024-02-15 15:58] VITALS: BP 160/90; PULSE 91; RESP 18; TEMP 99.1; O2SAT 97
[2024-02-15] MEDS: TRAMADOL HCL 50 MG TAB GT SCH (16:20)
[2024-02-15] MEDS: DULOXETINE HCL 20 MG DELAYED RELEASE PO SCH (16:20)
[2024-02-15] MEDS: TAMSULOSIN HCL 0.4 MG CAP GT SCH (16:20)
[2024-02-15] MEDS: PREGABALIN 50 MG CAP GT SCH (16:20)
[2024-02-15] MEDS: SOLIFENACIN SUCCINATE 5 MG TAB GT SCH (16:20)
[2024-02-15] MEDS: FAMOTIDINE 20 MG TAB GT SCH (16:20)
[2024-02-15] MEDS: BUPROPION HCL 100 MG TAB GT SCH (16:20)
[2024-02-15 16:30] VITALS: PULSE 78; RESP 22; O2SAT 96
[2024-02-15] MEDS: ALBUTEROL/IPRATROPIUM 3 ML NEB NEB PRN (16:33)
[2024-02-15] MEDS: FLUTICASONE PROPIONATE NASAL SPRAY NS SCH (17:00)
[2024-02-15 20:00] VITALS: BP 105/69; PULSE 85; RESP 21; TEMP 99.8; O2SAT 96
[2024-02-15] MEDS: SODIUM CHLORIDE 0.9% 1000ML 1,000 ML IV SCH (20:38)
[2024-02-16] VITALS (9 sets, daily range): BP systolic 99–134; BP diastolic 65–85; PULSE 66–84; RESP 16–22; TEMP 97.9–98.9; O2SAT 89–100
[2024-02-16 00:04] LABS: TROPONIN I 0.014 ng/mL (0-0.300)
[2024-02-16] MEDS: LEVOTHYROXINE SODIUM 100 MCG TAB GT SCH (05:23)
[2024-02-16] MEDS: LEVOTHYROXINE SODIUM 75 MCG TAB GT SCH (05:23)
[2024-02-16 06:42] LABS: BASOPHILS # (AUTO) 0.1 (0.0-0.1); BASOPHILS % 0.6 % (0.0-1.0); EOSINOPHILS # (AUTO) 0.3 (0.0-0.4); EOSINOPHILS % 2.6 % (0.0-6.0); HEMATOCRIT 27.7 % (38.2-49.6); HEMOGLOBIN 8.5 g/dL (14.0-18.0); LYMPHOCYTES # (AUTO) 1.7 (1.0-3.2); MEAN CORPUSCULAR HEMOGLOBIN 26.8 pg (28-32); MEAN CORPUSCULAR HGB CONC 30.7 g/dL (31-35); MEAN CORPUSCULAR VOLUME 87.4 fL (81-99); MONOCYTES # (AUTO) 1.3 (0.2-0.8); MONOCYTES % 12.6 % (4.4-11.3); NEUTROPHILS % 67.7 % (38.7-80.0); PLATELET COUNT 361 x10e3/uL (140-360); RED BLOOD COUNT 3.17 x10e6/uL (4.3-5.7); RED CELL DISTRIBUTION WIDTH 18.6 % (11.7-14.4); WHITE BLOOD COUNT 10.29 x10e3/uL (4.8-10.8)
[2024-02-16 06:50] LABS: ALBUMIN 2.3 g/dL (3.5-5.0); ALBUMIN/GLOBULIN RATIO 0.6 (0.8-2.0); ANION GAP 12.5 mmol/L (8-16); BILIRUBIN,TOTAL 0.4 mg/dL (0.2-1.2); CALCIUM 8.5 mg/dL (8.4-10.2); CREATININE, SERUM 0.82 mg/dL (0.72-1.25); POTASSIUM 3.5 mmol/L (3.5-5.1); TOTAL PROTEIN 6.3 g/dL (6.5-8.1)
[2024-02-16 07:49] LABS: TROPONIN I 0.01 ng/mL (0-0.300)
[2024-02-16] MEDS: CYANOCOBALAMIN 1,000 MCG TAB GT SCH (09:23)
[2024-02-16] MEDS: CELECOXIB 200 MG CAP GT SCH (09:23)
[2024-02-16] MEDS: LORATADINE 10 MG TAB GT SCH (09:23)
[2024-02-16] MEDS: AMLODIPINE BESYLATE 5 MG TAB GT SCH (09:24)
[2024-02-16] MEDS ORDERED: SODIUM CHLORIDE 0.9% 500ML 500 ML ONE (14:06)
[2024-02-16] MEDS ORDERED: LIDOCAINE HCL 1% LOCAL INJ 20 ML VIAL ONE (14:06)
[2024-02-16] MEDS ORDERED: IOPAMIDOL 370 MG/ML 100 ML INFUS..BTL INJ ONE (14:06)
[2024-02-16] MEDS ORDERED: FENTANYL CITRATE/PF 100MCG/2 ML INJ ONE (14:28)
[2024-02-16] MEDS: FERROUS SULFATE 300 MG/5 ML LIQD GT SCH (15:46)
[2024-02-17] VITALS (8 sets, daily range): BP systolic 109–153; BP diastolic 57–96; PULSE 71–94; RESP 17–20; TEMP 97.8–98.6; O2SAT 95–100
[2024-02-17 06:32] LABS: BASOPHILS % 0.2 % (0.0-1.0); EOSINOPHILS # (AUTO) 0.3 (0.0-0.4); EOSINOPHILS % 3.7 % (0.0-6.0); HEMATOCRIT 28.6 % (38.2-49.6); HEMOGLOBIN 8.5 g/dL (14.0-18.0); LYMPHOCYTES # (AUTO) 1.5 (1.0-3.2); LYMPHOCYTES % 16.7 % (18.0-39.1); MEAN CORPUSCULAR HEMOGLOBIN 26.2 pg (28-32); MEAN CORPUSCULAR HGB CONC 29.7 g/dL (31-35); MEAN CORPUSCULAR VOLUME 88.3 fL (81-99); MONOCYTES # (AUTO) 0.8 (0.2-0.8); MONOCYTES % 9.3 % (4.4-11.3); NEUTROPHILS # (AUTO) 6.2 (2.1-6.9); NEUTROPHILS % 69.5 % (38.7-80.0); PLATELET COUNT 377 x10e3/uL (140-360); RED BLOOD COUNT 3.24 x10e6/uL (4.3-5.7); RED CELL DISTRIBUTION WIDTH 18.5 % (11.7-14.4); WHITE BLOOD COUNT 8.94 x10e3/uL (4.8-10.8)
[2024-02-17 07:05] LABS: ANION GAP 12.1 mmol/L (8-16); CALCIUM 8.7 mg/dL (8.4-10.2); CREATININE, SERUM 0.77 mg/dL (0.72-1.25); POTASSIUM 4.1 mmol/L (3.5-5.1)
[2024-02-18] VITALS (9 sets, daily range): BP systolic 135–190; BP diastolic 84–106; PULSE 71–90; RESP 16–20; TEMP 98.2–99.1; O2SAT 93–100
[2024-02-18] MEDS: HYDRALAZINE HCL 20 MG/ML VIAL IV PRN (21:16)
[2024-02-19 00:33] VITALS: BP 117/79; PULSE 76; RESP 17; TEMP 98.3; O2SAT 100
[2024-02-19 04:00] VITALS: BP 125/86; PULSE 77; RESP 17; TEMP 98.2; O2SAT 96
[2024-02-19 06:55] VITALS: PULSE 74; RESP 22; O2SAT 95
[2024-02-19 07:44] VITALS: BP 154/100; PULSE 73; RESP 19; TEMP 98.4; O2SAT 96
[2024-02-19 09:10] VITALS: BP 154/100; PULSE 73; RESP 19; TEMP 98.4; O2SAT 96
[2024-02-19] MEDS: PREDNISONE 20 MG TAB PO SCH (09:56)
[2024-02-19 11:16] VITALS: BP 142/95; PULSE 74; RESP 16; TEMP 98.5; O2SAT 98
[2024-02-19] MEDS ORDERED: CIPROFLOXACIN500 MG PO (14:55)
[2024-02-19] MEDS ORDERED: PREDNISONE20 MG PO (14:56)
== END 2024-02-19 15:26 | disposition home or self-care (01) | DRG 693 ==
LOC: ER 08:25 → ERHOLD 09:51 → MED/SURG3 11:26
PROVIDERS: ADMIT Family Medicine; ATTEND Family Medicine
PROC: 0D20XUZ Change Feeding Device in Upper Intestinal Tract, External Approach (ICD-10-PCS; principal; 2024-02-19)
DX: N20.9 Urinary calculus, unspecified (principal); J69.0 Pneumonitis due to inhalation of food and vomit; I10 Essential (primary) hypertension; N40.0 Benign prostatic hyperplasia without lower urinary tract symptoms; E03.9 Hypothyroidism, unspecified; F41.9 Anxiety disorder, unspecified; R53.81 Other malaise; Z93.1 Gastrostomy status; K21.9 Gastro-esophageal reflux disease without esophagitis; B96.5 Pseudomonas (aeruginosa) (mallei) (pseudomallei) as the cause of diseases classified elsewhere; Z11.52 Encounter for screening for COVID-19; Z79.890 Hormone replacement therapy; Z79.51 Long term (current) use of inhaled steroids; Z87.440 Personal history of urinary (tract) infections; Z85.818 Personal history of malignant neoplasm of other sites of lip, oral cavity, and pharynx; Z96.0 Presence of urogenital implants
CPT/HCPCS: 36415; 49450; 70450; 71250; 74018; 74176; 74470; 80048; 80053; 81001; 82550; 83605; 83735; 84484; 85025; 85610; 85730; 87040; 87086; 87186; 87400; 87420; 93005; 94640; 94799; 99252; 99284; C1769; J0360; J2003; J2185; J2405; J2470; J7030; J7040; J7050; J7512; Q9967; U0002

== ENCOUNTER → 2024-03-12 | Day surgery (SDC) | payer MEDICARE, OTHER ==
[2024-03-11 11:45] LABS: BASOPHILS % 0.2 % (0.0-1.0); EOSINOPHILS # (AUTO) 0.4 (0.0-0.4); EOSINOPHILS % 4.6 % (0.0-6.0); HEMATOCRIT 32.5 % (38.2-49.6); HEMOGLOBIN 9.3 g/dL (14.0-18.0); LYMPHOCYTES # (AUTO) 1.1 (1.0-3.2); LYMPHOCYTES % 12.5 % (18.0-39.1); MEAN CORPUSCULAR HEMOGLOBIN 26.2 pg (28-32); MEAN CORPUSCULAR HGB CONC 28.6 g/dL (31-35); MEAN CORPUSCULAR VOLUME 91.5 fL (81-99); MONOCYTES # (AUTO) 0.6 (0.2-0.8); MONOCYTES % 7.4 % (4.4-11.3); NEUTROPHILS # (AUTO) 6.3 (2.1-6.9); NEUTROPHILS % 74.9 % (38.7-80.0); PLATELET COUNT 266 x10e3/uL (140-360); RED BLOOD COUNT 3.55 x10e6/uL (4.3-5.7); RED CELL DISTRIBUTION WIDTH 18.5 % (11.7-14.4)
[2024-03-11 12:03] LABS: ANION GAP 16.2 mmol/L (8-16); CALCIUM 9.2 mg/dL (8.4-10.2); CREATININE, SERUM 0.87 mg/dL (0.72-1.25)
[2024-03-11 12:17] LABS: POTASSIUM 5.2 mmol/L (3.5-5.1)
[~2024-03-12] MED LIST changes: +ACETAMINOPHEN 1000 MG/100 ML 100 ML IV ONE; +CIPROFLOXACIN500 MG PO; +DEXAMETHASONE SOD PHOS INJ 4 MG/ML SDV ONE; +EPHEDRINE SULFATE INJ 50 MG/ML VIAL ONE; +FAMOTIDINE 20 MG/2 ML VIAL IV ONE; +FENTANYL CITRATE/PF 100MCG/2 ML INJ ONE; +GLYCOPYRROLATE INJ 0.2 MG/ML VIAL ONE; +IOPAMIDOL 610MG/1ML 300 MG/ML VIAL IV ONE; +KETAMINE HCL INJ 50 MG/ML 10 ML VIAL ONE; +LIDOCAINE HCL 2% LOCAL INJ 5 ML SDV VIAL INJ ONE; +MIDAZOLAM HCL 2 MG/2 ML VIAL ONE; +ONDANSETRON HCL INJ 2MG/ML 2ML 2 MG/ML VIAL ONE; +PREDNISONE20 MG PO; +PROPOFOL IV EMULSION 10 MG/ML 20 ML VIAL ONE; +ROCURONIUM BROMIDE 10 MG/ML 5ML VIAL IV ONE; +SEVOFLURANE INHAL SOLN 250 ML PEN BTL ONE; +SUCCINYLCHOLINE CHLORIDE 20 MG/ML 10ML VIAL ONE
[2024-03-12] MEDS: LACTATED RINGER'S 1,000 ML ONE (10:54)
[2024-03-12] MEDS: GENTAMICIN 80MG/NS 100 ML 200 ML IV ONE (10:55)
[2024-03-12 13:33] VITALS: TEMP 97.1
[2024-03-12] MEDS: PHENAZOPYRIDINE HCL 100 MG TAB ONE (14:19)
[2024-03-12 14:40] VITALS: BP 146/88; PULSE 82; RESP 16; O2SAT 96
== END | disposition home or self-care (01) ==
LOC: OR 10:05
PROVIDERS: ATTEND Urology
DX: N20.0 Calculus of kidney (principal); N35.919 Unspecified urethral stricture, male, unspecified site; R82.81 Pyuria; N40.1 Benign prostatic hyperplasia with lower urinary tract symptoms; I10 Essential (primary) hypertension; E78.00 Pure hypercholesterolemia, unspecified; E03.9 Hypothyroidism, unspecified; K21.9 Gastro-esophageal reflux disease without esophagitis; R13.10 Dysphagia, unspecified; Z93.1 Gastrostomy status; F32.A Depression, unspecified; M19.91 Primary osteoarthritis, unspecified site; Z87.01 Personal history of pneumonia (recurrent); Z01.818 Encounter for other preprocedural examination; Z46.6 Encounter for fitting and adjustment of urinary device; Z01.812 Encounter for preprocedural laboratory examination; Z79.899 Other long term (current) drug therapy
CPT/HCPCS: 36415; 52332; 52352; 74018; 74420; 80048; 84550; 85025; 87086; C1758; C1769; J0131; J0330; J1100; J1580; J2003; J2250; J2405; J2704; J3010; J7121; Q9967

== ENCOUNTER 2024-06-28 11:44 | Inpatient (IN) | payer MEDICARE, OTHER ==
[~2024-06-28] VITALS: Ht 198.1 cm; Wt 86.2 kg
[2024-06-28] VITALS (9 sets, daily range): BP systolic 96–126; BP diastolic 56–83; PULSE 69–89; RESP 16–21; TEMP 97.6–98.5; O2SAT 93–98
[~2024-06-28 11:44] MED LIST changes: -ACETAMINOPHEN 1000 MG/100 ML 100 ML IV ONE; -DEXAMETHASONE SOD PHOS INJ 4 MG/ML SDV ONE; -EPHEDRINE SULFATE INJ 50 MG/ML VIAL ONE; -FAMOTIDINE 20 MG/2 ML VIAL IV ONE; -FENTANYL CITRATE/PF 100MCG/2 ML INJ ONE; -GLYCOPYRROLATE INJ 0.2 MG/ML VIAL ONE; -IOPAMIDOL 610MG/1ML 300 MG/ML VIAL IV ONE; -KETAMINE HCL INJ 50 MG/ML 10 ML VIAL ONE; -LIDOCAINE HCL 2% LOCAL INJ 5 ML SDV VIAL INJ ONE; -MIDAZOLAM HCL 2 MG/2 ML VIAL ONE; -ONDANSETRON HCL INJ 2MG/ML 2ML 2 MG/ML VIAL ONE; -PROPOFOL IV EMULSION 10 MG/ML 20 ML VIAL ONE; -ROCURONIUM BROMIDE 10 MG/ML 5ML VIAL IV ONE; -SEVOFLURANE INHAL SOLN 250 ML PEN BTL ONE; -SUCCINYLCHOLINE CHLORIDE 20 MG/ML 10ML VIAL ONE
[2024-06-28 12:14] LABS: BASOPHILS # (AUTO) 0.1 (0.0-0.1); BASOPHILS % 0.3 % (0.0-1.0); EOSINOPHILS # (AUTO) 0.1 (0.0-0.4); EOSINOPHILS % 0.6 % (0.0-6.0); HEMOGLOBIN 10.7 g/dL (14.0-18.0); LYMPHOCYTES # (AUTO) 1.4 (1.0-3.2); LYMPHOCYTES % 6.8 % (18.0-39.1); MEAN CORPUSCULAR HGB CONC 32.4 g/dL (31-35); MEAN CORPUSCULAR VOLUME 86.4 fL (81-99); MONOCYTES # (AUTO) 1.8 (0.2-0.8); NEUTROPHILS # (AUTO) 16.8 (2.1-6.9); NEUTROPHILS % 82.7 % (38.7-80.0); PLATELET COUNT 527 x10e3/uL (140-360); RED BLOOD COUNT 3.82 x10e6/uL (4.3-5.7); RED CELL DISTRIBUTION WIDTH 15.3 % (11.7-14.4); WHITE BLOOD COUNT 20.34 x10e3/uL (4.8-10.8)
[2024-06-28 12:30] LABS: INR 1.06; PROTHROMBIN TIME 14.4 seconds (11.9-14.5)
[2024-06-28] MEDS: SODIUM CHLORIDE 0.9% IV SCH (12:34)
[2024-06-28 12:37] LABS: ALBUMIN 2.3 g/dL (3.5-5.0); ALBUMIN/GLOBULIN RATIO 0.4 (0.8-2.0); ALKALINE PHOSPHATASE 87 IU/L (40-150); ANION GAP 12.9 mmol/L (8-16); BILIRUBIN,TOTAL 0.4 mg/dL (0.2-1.2); BLOOD UREA NITROGEN 23 mg/dL (7-26); BUN/CREATININE RATIO 23 (6-25); CALCIUM 9.3 mg/dL (8.4-10.2); CARBON DIOXIDE 28 mmol/L (22-29); CHLORIDE 98 mmol/L (98-107); CREATININE, SERUM 0.99 mg/dL (0.72-1.25); EST GLOMERULAR FILTRATION RATE 82 ML/MIN (>=60); GLUCOSE 112 mg/dL (74-118); POTASSIUM 3.9 mmol/L (3.5-5.1); SODIUM 135 mmol/L (136-145); TOTAL PROTEIN 7.5 g/dL (6.5-8.1)
[2024-06-28 12:42] LABS: ALANINE AMINOTRANSFERASE < 6 IU/L (0-55); TROPONIN I < 0.001 ng/mL (0-0.300)
[2024-06-28 12:46] LABS: LYMPHOCYTES % (MANUAL) 8 % (19-48); MONOCYTES % (MANUAL) 9 % (3.4-9.0); NEUTROPHILS % (MANUAL) 83 % (40-74); PLATELET ESTIMATE SLIGHTLY INCREASED; PLATELET MORPHOLOGY COMMENT NORMAL; RBC MORPHOLOGY COMMENT NORMAL
[2024-06-28] MEDS: SODIUM CHLORIDE 0.9% 1000ML 1,000 ML IV SCH (13:41)
[2024-06-28 13:57] LABS: INFLUENZA A AG NEGATIVE (NEGATIVE)
[2024-06-28 13:58] LABS: CORONAVIRUS COVID-19 AG NEGATIVE (NEGATIVE); INFLUENZA B AG NEGATIVE (NEGATIVE)
[2024-06-28 14:38] LABS: BILIRUBIN,URINE NEGATIVE (NEGATIVE); CLARITY,URINE CLEAR (CLEAR); COLOR,URINE YELLOW (YELLOW); GLUCOSE, URINE NEGATIVE (NEGATIVE); KETONES,URINE NEGATIVE (NEGATIVE); LEUKOCYTE ESTERASE ,URINE NEGATIVE (NEGATIVE); NITRITE,URINE NEGATIVE (NEGATIVE); PH,URINE 7 (5 - 7); PROTEIN,URINE DIPSTICK TRACE (NEGATIVE); URINE UROBILINOGEN 0.2 mg/dL (0.2 - 1)
[2024-06-28 14:43] LABS: BACTERIA,URINE FEW /HPF; EPITHELIAL CELLS,URINE FEW /LPF; RBC,URINE 0-5 /HPF (0-5); WBC,URINE (MAN) 0-5 /HPF (0-5)
[2024-06-28] MEDS: BUPROPION HCL 100 MG TAB GT SCH (20:46)
[2024-06-28] MEDS: TRAMADOL HCL 50 MG TAB GT SCH (21:29)
[2024-06-28] MEDS: PREGABALIN 50 MG CAP GT SCH (21:29)
[2024-06-28] MEDS: ALBUTEROL/IPRATROPIUM 3 ML NEB NEB SCH (23:15)
[2024-06-29] VITALS (8 sets, daily range): BP systolic 105–130; BP diastolic 67–81; PULSE 72–86; RESP 16–22; TEMP 98.4–99.4; O2SAT 92–98
[2024-06-29] MEDS ORDERED: IPRATROPIUM BROMIDE 0.02% 2.5 ML NEB NEB SCH (01:00)
[2024-06-29 06:22] LABS: BASOPHILS # (AUTO) 0.1 (0.0-0.1); BASOPHILS % 0.4 % (0.0-1.0); EOSINOPHILS # (AUTO) 0.3 (0.0-0.4); EOSINOPHILS % 1.9 % (0.0-6.0); HEMATOCRIT 31.3 % (38.2-49.6); HEMOGLOBIN 9.8 g/dL (14.0-18.0); LYMPHOCYTES # (AUTO) 1.1 (1.0-3.2); LYMPHOCYTES % 7.9 % (18.0-39.1); MEAN CORPUSCULAR HEMOGLOBIN 27.8 pg (28-32); MEAN CORPUSCULAR HGB CONC 31.3 g/dL (31-35); MEAN CORPUSCULAR VOLUME 88.7 fL (81-99); MONOCYTES # (AUTO) 1.3 (0.2-0.8); MONOCYTES % 9.3 % (4.4-11.3); NEUTROPHILS # (AUTO) 11.3 (2.1-6.9); NEUTROPHILS % 79.9 % (38.7-80.0); PLATELET COUNT 449 x10e3/uL (140-360); RED BLOOD COUNT 3.53 x10e6/uL (4.3-5.7); RED CELL DISTRIBUTION WIDTH 15.5 % (11.7-14.4); WHITE BLOOD COUNT 14.12 x10e3/uL (4.8-10.8)
[2024-06-29] MEDS: LEVOTHYROXINE SODIUM 100 MCG TAB GT SCH (06:26)
[2024-06-29] MEDS: LEVOTHYROXINE SODIUM 75 MCG TAB PO SCH (06:26)
[2024-06-29 06:57] LABS: ALBUMIN/GLOBULIN RATIO 0.5 (0.8-2.0); BILIRUBIN,TOTAL 0.2 mg/dL (0.2-1.2); CALCIUM 8.5 mg/dL (8.4-10.2); CREATININE, SERUM 0.76 mg/dL (0.72-1.25); TOTAL PROTEIN 6.3 g/dL (6.5-8.1)
[2024-06-29] MEDS: TAMSULOSIN HCL 0.4 MG CAP GT SCH (09:00)
[2024-06-29] MEDS ORDERED: TRAMADOL HCL 50 MG TAB GT SCH (09:00)
[2024-06-29] MEDS: FERROUS SULFATE 325 MG TAB GT SCH (09:00)
[2024-06-29] MEDS ORDERED: PREGABALIN 50 MG CAP GT SCH (09:00)
[2024-06-29] MEDS: CYANOCOBALAMIN 1,000 MCG TAB GT SCH (09:00)
[2024-06-29] MEDS: FAMOTIDINE 20 MG TAB GT SCH (09:01)
[2024-06-29] MEDS: DULOXETINE HCL 20 MG DELAYED RELEASE PO SCH (09:01)
[2024-06-29] MEDS: CELECOXIB 200 MG CAP GT SCH (09:01)
[2024-06-29] MEDS: AMLODIPINE BESYLATE 5 MG TAB GT SCH (09:02)
[2024-06-29] MEDS: ALBUTEROL/IPRATROPIUM 3 ML NEB NEB SCH (11:55)
[2024-06-29] MEDS: ENOXAPARIN 30 MG/0.3 ML SYR SC SCH (17:48)
[2024-06-30] VITALS (12 sets, daily range): BP systolic 103–121; BP diastolic 68–78; PULSE 70–81; RESP 16–20; TEMP 97.6–98.5; O2SAT 94–99
[2024-06-30 06:34] LABS: BASOPHILS # (AUTO) 0.1 (0.0-0.1); BASOPHILS % 0.5 % (0.0-1.0); EOSINOPHILS # (AUTO) 0.4 (0.0-0.4); EOSINOPHILS % 3.6 % (0.0-6.0); HEMATOCRIT 31.6 % (38.2-49.6); HEMOGLOBIN 9.8 g/dL (14.0-18.0); LYMPHOCYTES # (AUTO) 1.2 (1.0-3.2); LYMPHOCYTES % 11.5 % (18.0-39.1); MEAN CORPUSCULAR HEMOGLOBIN 27.6 pg (28-32); MONOCYTES % 9.5 % (4.4-11.3); NEUTROPHILS # (AUTO) 7.8 (2.1-6.9); NEUTROPHILS % 74.2 % (38.7-80.0); PLATELET COUNT 448 x10e3/uL (140-360); RED BLOOD COUNT 3.55 x10e6/uL (4.3-5.7); RED CELL DISTRIBUTION WIDTH 15.4 % (11.7-14.4); WHITE BLOOD COUNT 10.44 x10e3/uL (4.8-10.8)
[2024-06-30 07:16] LABS: ANION GAP 11.9 mmol/L (8-16); CALCIUM 8.7 mg/dL (8.4-10.2); CREATININE, SERUM 0.75 mg/dL (0.72-1.25); POTASSIUM 3.9 mmol/L (3.5-5.1)
[2024-07-01] VITALS (13 sets, daily range): BP systolic 103–146; BP diastolic 75–88; PULSE 70–82; RESP 16–20; TEMP 97.5–98.9; O2SAT 94–100
[2024-07-01 06:38] LABS: BASOPHILS # (AUTO) 0.1 (0.0-0.1); BASOPHILS % 0.5 % (0.0-1.0); EOSINOPHILS # (AUTO) 0.4 (0.0-0.4); EOSINOPHILS % 4.7 % (0.0-6.0); HEMATOCRIT 33.6 % (38.2-49.6); HEMOGLOBIN 10.4 g/dL (14.0-18.0); LYMPHOCYTES # (AUTO) 1.2 (1.0-3.2); LYMPHOCYTES % 12.5 % (18.0-39.1); MEAN CORPUSCULAR HEMOGLOBIN 27.6 pg (28-32); MEAN CORPUSCULAR VOLUME 89.1 fL (81-99); MONOCYTES # (AUTO) 0.9 (0.2-0.8); MONOCYTES % 9.7 % (4.4-11.3); NEUTROPHILS # (AUTO) 6.7 (2.1-6.9); NEUTROPHILS % 72.1 % (38.7-80.0); PLATELET COUNT 386 x10e3/uL (140-360); RED BLOOD COUNT 3.77 x10e6/uL (4.3-5.7); RED CELL DISTRIBUTION WIDTH 15.7 % (11.7-14.4); WHITE BLOOD COUNT 9.22 x10e3/uL (4.8-10.8)
[2024-07-01 07:19] LABS: ANION GAP 15.3 mmol/L (8-16); CREATININE, SERUM 0.76 mg/dL (0.72-1.25); POTASSIUM 4.3 mmol/L (3.5-5.1)
[2024-07-02] VITALS (9 sets, daily range): BP systolic 92–119; BP diastolic 63–82; PULSE 72–84; RESP 16–20; TEMP 97.7–98.2; O2SAT 94–99
[2024-07-02] MEDS: SODIUM CHLORIDE 0.9% 250ML 250 ML ONE (15:24)
== END 2024-07-02 20:40 | disposition home or self-care (01) | DRG 178 ==
LOC: ER 11:58 → ERHOLD 13:26 → MED/SURG3 15:20
PROVIDERS: ADMIT Family Medicine; ATTEND Family Medicine
DX: J69.0 Pneumonitis due to inhalation of food and vomit (principal); Z16.24 Resistance to multiple antibiotics; B96.1 Klebsiella pneumoniae [K. pneumoniae] as the cause of diseases classified elsewhere; R13.12 Dysphagia, oropharyngeal phase; Z11.52 Encounter for screening for COVID-19; I10 Essential (primary) hypertension; E03.9 Hypothyroidism, unspecified; F32.A Depression, unspecified; F41.9 Anxiety disorder, unspecified; Z79.51 Long term (current) use of inhaled steroids; Z79.890 Hormone replacement therapy; Z93.1 Gastrostomy status; Z85.818 Personal history of malignant neoplasm of other sites of lip, oral cavity, and pharynx; Z92.3 Personal history of irradiation; Z88.6 Allergy status to analgesic agent
CPT/HCPCS: 36415; 71045; 71046; 80048; 80053; 81001; 83605; 84484; 85025; 85610; 85730; 87040; 87070; 87086; 87186; 87205; 93005; 94640; 94667; 94668; 94669; 94799; 99284; J1650; J2543; J7030; J7050

== ENCOUNTER 2024-08-18 11:49 | Inpatient (IN) | payer MEDICARE, OTHER ==
[~2024-08-18] VITALS: Ht 198.1 cm; Wt 86.2 kg
[2024-08-18] VITALS (8 sets, daily range): BP systolic 115–141; BP diastolic 87–95; PULSE 76–85; RESP 16–20; TEMP 97.7–98.3; O2SAT 92–100
[2024-08-18 13:01] LABS: BASOPHILS % 0.5 % (0.0-1.0); EOSINOPHILS # (AUTO) 0.5 (0.0-0.4); EOSINOPHILS % 6.8 % (0.0-6.0); HEMATOCRIT 36.3 % (38.2-49.6); HEMOGLOBIN 11.7 g/dL (14.0-18.0); LYMPHOCYTES # (AUTO) 1.2 (1.0-3.2); LYMPHOCYTES % 16.5 % (18.0-39.1); MEAN CORPUSCULAR HEMOGLOBIN 28.5 pg (28-32); MEAN CORPUSCULAR HGB CONC 32.2 g/dL (31-35); MEAN CORPUSCULAR VOLUME 88.5 fL (81-99); MONOCYTES # (AUTO) 0.6 (0.2-0.8); MONOCYTES % 8.1 % (4.4-11.3); NEUTROPHILS % 67.8 % (38.7-80.0); PLATELET COUNT 373 x10e3/uL (140-360); RED CELL DISTRIBUTION WIDTH 16.3 % (11.7-14.4); WHITE BLOOD COUNT 7.32 x10e3/uL (4.8-10.8)
[2024-08-18 13:17] LABS: INR 0.96; PROTHROMBIN TIME 13.4 seconds (11.9-14.5)
[2024-08-18 13:18] LABS: PARTIAL THROMBOPLASTIN TIME 38.8 seconds (23.8-35.5)
[2024-08-18 13:28] LABS: ALANINE AMINOTRANSFERASE 8 IU/L (0-55); ALBUMIN 3.4 g/dL (3.5-5.0); ALBUMIN/GLOBULIN RATIO 0.8 (0.8-2.0); ALKALINE PHOSPHATASE 109 IU/L (40-150); ANION GAP 14.3 mmol/L (8-16); BILIRUBIN,TOTAL 0.4 mg/dL (0.2-1.2); BLOOD UREA NITROGEN 21 mg/dL (7-26); BUN/CREATININE RATIO 23 (6-25); CALCIUM 9.3 mg/dL (8.4-10.2); CARBON DIOXIDE 31 mmol/L (22-29); CHLORIDE 99 mmol/L (98-107); CREATINE KINASE 70 IU/L (30-200); CREATININE, SERUM 0.93 mg/dL (0.72-1.25); EST GLOMERULAR FILTRATION RATE 89 ML/MIN (>=60); GLUCOSE 99 mg/dL (74-118); MAGNESIUM 2.1 MG/DL (1.3-2.1); POTASSIUM 4.3 mmol/L (3.5-5.1); SODIUM 140 mmol/L (136-145); TOTAL PROTEIN 7.6 g/dL (6.5-8.1)
[2024-08-18 13:40] LABS: TROPONIN I < 0.001 ng/mL (0-0.300)
[2024-08-18] MEDS ORDERED: SEVOFLURANE INHAL SOLN 250 ML PEN BTL ONE (14:00)
[2024-08-18] MEDS ORDERED: IOPAMIDOL 370 MG/ML 100 ML INFUS..BTL INJ ONE (14:04)
[2024-08-18 14:18] LABS: INFLUENZA A AG NEGATIVE (NEGATIVE)
[2024-08-18 14:19] LABS: CORONAVIRUS COVID-19 AG NEGATIVE (NEGATIVE); INFLUENZA B AG NEGATIVE (NEGATIVE)
[2024-08-18] MEDS: SODIUM CHLORIDE 0.9% 1000ML 1,000 ML IV STA (15:41)
[2024-08-18] MEDS: ALBUTEROL SULF 0.083% NEB SOLN 3 ML NEB NEB SCH (18:17)
[2024-08-18] MEDS: IPRATROPIUM BROMIDE 0.02% 2.5 ML NEB NEB SCH (18:17)
[2024-08-18] MEDS: SODIUM CHLORIDE 0.9% 1000ML 1,000 ML IV SCH (22:04)
[2024-08-19] VITALS (14 sets, daily range): BP systolic 92–143; BP diastolic 60–87; PULSE 67–95; RESP 17–20; TEMP 97.6–98.5; O2SAT 92–100
[2024-08-19] MEDS: LEVOTHYROXINE SODIUM 100 MCG TAB PO SCH (05:34)
[2024-08-19] MEDS: LEVOTHYROXINE SODIUM 75 MCG TAB PO SCH (05:34)
[2024-08-19 05:36] LABS: BASOPHILS % 0.3 % (0.0-1.0); EOSINOPHILS # (AUTO) 0.6 (0.0-0.4); EOSINOPHILS % 8.2 % (0.0-6.0); HEMATOCRIT 32.2 % (38.2-49.6); HEMOGLOBIN 10.4 g/dL (14.0-18.0); LYMPHOCYTES # (AUTO) 0.5 (1.0-3.2); LYMPHOCYTES % 7.2 % (18.0-39.1); MEAN CORPUSCULAR HEMOGLOBIN 28.6 pg (28-32); MEAN CORPUSCULAR HGB CONC 32.3 g/dL (31-35); MEAN CORPUSCULAR VOLUME 88.5 fL (81-99); MONOCYTES # (AUTO) 0.8 (0.2-0.8); MONOCYTES % 10.6 % (4.4-11.3); NEUTROPHILS # (AUTO) 5.2 (2.1-6.9); NEUTROPHILS % 73.3 % (38.7-80.0); PLATELET COUNT 301 x10e3/uL (140-360); RED BLOOD COUNT 3.64 x10e6/uL (4.3-5.7); RED CELL DISTRIBUTION WIDTH 16.1 % (11.7-14.4); WHITE BLOOD COUNT 7.08 x10e3/uL (4.8-10.8)
[2024-08-19 06:08] LABS: ALBUMIN 2.6 g/dL (3.5-5.0); ALBUMIN/GLOBULIN RATIO 0.7 (0.8-2.0); ALKALINE PHOSPHATASE 86 IU/L (40-150); ANION GAP 12.6 mmol/L (8-16); BILIRUBIN,TOTAL 0.6 mg/dL (0.2-1.2); BLOOD UREA NITROGEN 18 mg/dL (7-26); BUN/CREATININE RATIO 23 (6-25); CALCIUM 8.5 mg/dL (8.4-10.2); CARBON DIOXIDE 27 mmol/L (22-29); CHLORIDE 104 mmol/L (98-107); CREATININE, SERUM 0.77 mg/dL (0.72-1.25); EST GLOMERULAR FILTRATION RATE 97 ML/MIN (>=60); GLUCOSE 82 mg/dL (74-118); POTASSIUM 3.6 mmol/L (3.5-5.1); SODIUM 140 mmol/L (136-145); TOTAL PROTEIN 6.5 g/dL (6.5-8.1)
[2024-08-19 06:09] LABS: ALANINE AMINOTRANSFERASE < 6 IU/L (0-55)
[2024-08-19 07:19] LABS: TROPONIN I 0.021 ng/mL (0-0.300)
[2024-08-19] MEDS: FAMOTIDINE 20 MG TAB GT SCH (09:29)
[2024-08-19] MEDS: FERROUS SULFATE 325 MG TAB GT SCH (09:29)
[2024-08-19] MEDS: AMLODIPINE BESYLATE 5 MG TAB GT SCH (09:29)
[2024-08-19] MEDS: CYANOCOBALAMIN 1,000 MCG TAB GT SCH (09:30)
[2024-08-19] MEDS: TAMSULOSIN HCL 0.4 MG CAP GT SCH (09:30)
[2024-08-19] MEDS: PREGABALIN 50 MG CAP GT SCH (09:30)
[2024-08-19] MEDS: TRAMADOL HCL 50 MG TAB GT SCH (09:31)
[2024-08-19 14:44] LABS: TROPONIN I 0.017 ng/mL (0-0.300)
[2024-08-19] MEDS ORDERED: SODIUM CHLORIDE 0.9% 250ML 250 ML ONE (18:01)
[2024-08-19] MEDS: BUPROPION HCL 100 MG TAB GT SCH (18:15)
[2024-08-20] VITALS (12 sets, daily range): BP systolic 95–135; BP diastolic 61–81; PULSE 63–89; RESP 18–20; TEMP 97.5–99.1; O2SAT 92–98
[2024-08-21] VITALS (14 sets, daily range): BP systolic 107–184; BP diastolic 73–93; PULSE 68–87; RESP 17–21; TEMP 97.2–97.9; O2SAT 91–100
[2024-08-22] VITALS (12 sets, daily range): BP systolic 114–161; BP diastolic 79–99; PULSE 76–97; RESP 16–20; TEMP 97.4–98.6; O2SAT 89–100
[2024-08-22 05:39] LABS: BASOPHILS % 0.5 % (0.0-1.0); EOSINOPHILS % 17.4 % (0.0-6.0); HEMATOCRIT 31.6 % (38.2-49.6); HEMOGLOBIN 10.2 g/dL (14.0-18.0); LYMPHOCYTES # (AUTO) 1.2 (1.0-3.2); LYMPHOCYTES % 19.4 % (18.0-39.1); MEAN CORPUSCULAR HEMOGLOBIN 28.6 pg (28-32); MEAN CORPUSCULAR HGB CONC 32.3 g/dL (31-35); MEAN CORPUSCULAR VOLUME 88.5 fL (81-99); MONOCYTES # (AUTO) 0.7 (0.2-0.8); MONOCYTES % 11.8 % (4.4-11.3); NEUTROPHILS % 50.6 % (38.7-80.0); PLATELET COUNT 297 x10e3/uL (140-360); RED BLOOD COUNT 3.57 x10e6/uL (4.3-5.7); RED CELL DISTRIBUTION WIDTH 16.5 % (11.7-14.4); WHITE BLOOD COUNT 5.93 x10e3/uL (4.8-10.8)
[2024-08-22 06:04] LABS: ANION GAP 13.6 mmol/L (8-16); CALCIUM 8.7 mg/dL (8.4-10.2); CREATININE, SERUM 0.77 mg/dL (0.72-1.25); POTASSIUM 3.6 mmol/L (3.5-5.1)
[2024-08-22] MEDS: ALBUTEROL/IPRATROPIUM 3 ML NEB INH PRN (07:25)
[2024-08-23] VITALS (12 sets, daily range): BP systolic 88–166; BP diastolic 54–95; PULSE 75–88; RESP 16–22; TEMP 97.3–98.6; O2SAT 94–100
[2024-08-23] MEDS ORDERED: FENTANYL CITRATE/PF 100MCG/2 ML INJ ONE ×2 (14:42→15:15)
[2024-08-23] MEDS ORDERED: LIDOCAINE HCL 2% LOCAL INJ 5 ML SDV VIAL INJ ONE (15:14)
[2024-08-23] MEDS ORDERED: MIDAZOLAM HCL 2 MG/2 ML VIAL ONE (15:15)
[2024-08-23] MEDS ORDERED: PROPOFOL IV EMULSION 10 MG/ML 20 ML VIAL ONE (15:16)
[2024-08-23] MEDS ORDERED: DEXAMETHASONE SOD PHOS INJ 4 MG/ML SDV ONE (15:23)
[2024-08-23] MEDS ORDERED: ONDANSETRON HCL INJ 2MG/ML 2ML 2 MG/ML VIAL ONE (15:23)
[2024-08-23 16:11] LABS: BODY FLUID APPEARANCE CLOUDY; BODY FLUID COLOR RED; BODY FLUID TYPE Bronchial Washing; RBC,BODY FLUID 21000 cells/uL; WBC,BODY FLUID 1699 cells/uL
[2024-08-23 18:31] LABS: LYMPHOCYTES,BODY FLUID 12 %; MONO/MACROPHG,BODY FLUID 4 %; NEUTROPHILS,BODY FLUID 84 %; TOTAL CELLS COUNTED (DIFF) 100
[2024-08-24] VITALS (9 sets, daily range): BP systolic 112–124; BP diastolic 73–80; PULSE 76–95; RESP 16–20; TEMP 97.6–99.1; O2SAT 93–100
[2024-08-24 06:04] LABS: BASOPHILS % 0.3 % (0.0-1.0); HEMATOCRIT 32.6 % (38.2-49.6); HEMOGLOBIN 10.5 g/dL (14.0-18.0); LYMPHOCYTES # (AUTO) 0.4 (1.0-3.2); LYMPHOCYTES % 12.9 % (18.0-39.1); MEAN CORPUSCULAR HEMOGLOBIN 28.1 pg (28-32); MEAN CORPUSCULAR HGB CONC 32.2 g/dL (31-35); MEAN CORPUSCULAR VOLUME 87.2 fL (81-99); MONOCYTES # (AUTO) 0.2 (0.2-0.8); MONOCYTES % 5.6 % (4.4-11.3); NEUTROPHILS # (AUTO) 2.5 (2.1-6.9); NEUTROPHILS % 81.2 % (38.7-80.0); PLATELET COUNT 314 x10e3/uL (140-360); RED BLOOD COUNT 3.74 x10e6/uL (4.3-5.7); RED CELL DISTRIBUTION WIDTH 16.3 % (11.7-14.4); WHITE BLOOD COUNT 3.03 x10e3/uL (4.8-10.8)
[2024-08-24 06:33] LABS: ANION GAP 13.1 mmol/L (8-16); CREATININE, SERUM 0.77 mg/dL (0.72-1.25); POTASSIUM 4.1 mmol/L (3.5-5.1)
== END 2024-08-24 19:25 | disposition home or self-care (01) | DRG 177 ==
LOC: ER 12:37 → ERHOLD 17:26 → MED/SURG2 19:09
PROVIDERS: ADMIT Family Medicine; ATTEND Family Medicine
PROC: 0BC38ZZ Extirpation of Matter from Right Main Bronchus, Via Natural or Artificial Opening Endoscopic (ICD-10-PCS; principal; 2024-08-23 15:14)
DX: J69.0 Pneumonitis due to inhalation of food and vomit (principal); J96.01 Acute respiratory failure with hypoxia; R04.2 Hemoptysis; B96.1 Klebsiella pneumoniae [K. pneumoniae] as the cause of diseases classified elsewhere; J98.09 Other diseases of bronchus, not elsewhere classified; R13.12 Dysphagia, oropharyngeal phase; J47.9 Bronchiectasis, uncomplicated; I10 Essential (primary) hypertension; E03.9 Hypothyroidism, unspecified; F41.9 Anxiety disorder, unspecified; Z11.52 Encounter for screening for COVID-19; Z79.890 Hormone replacement therapy; Z85.89 Personal history of malignant neoplasm of other organs and systems; Z93.1 Gastrostomy status; N40.0 Benign prostatic hyperplasia without lower urinary tract symptoms; R53.81 Other malaise
CPT/HCPCS: 31622; 36415; 71045; 71260; 80048; 80053; 82550; 82948; 83735; 83880; 84484; 85025; 85379; 85610; 85730; 87040; 87116; 87205; 87206; 87335; 89051; 93005; 94640; 94760; 94799; 99284; J1100; J2003; J2250; J2405; J2543; J7030; J7050; Q9967